=== PATIENT | female | born 1945 | race Caucasian/White ===

== ENCOUNTER 2020-03-02 10:44 | Outpatient (REF) | payer BC, SELFPAY ==
--- NOTE | 2020-03-02 10:50 | XR_ITS ---
EXAMINATION: XR KNEE, LEFT CLINICAL INFORMATION: Left knee pain. COMPARISON: 03/22/2016 TECHNIQUE: AP, lateral, and both oblique views of the left knee. FINDINGS: Mild patellofemoral compartment osteoarthritis is again noted, similar to prior. Medial lateral compartments. Also the well-preserved. No fracture or malalignment. No joint effusion. Soft tissues are unremarkable. IMPRESSION: Mild patellofemoral compartment degenerative arthritis. No acute osseous abnormalities.
== END 2020-03-02 10:45 | disposition home or self-care (01) ==
LOC: HO.HMGCX 10:44
PROVIDERS: PCP Internal Medicine; Visit Provider Hospitalist
DX: M25.562 Pain in left knee (principal)
CPT/HCPCS: 73564

== ENCOUNTER 2020-03-21 10:33 | Outpatient (REF) | payer BC, SELFPAY | END 2020-03-21 10:34 | disposition home or self-care (01) | LOC: HO.LAB 10:33 | PROVIDERS: Visit Provider Nurse Practitioner Family | DX: N39.0 Urinary tract infection, site not specified (principal); R31.9 Hematuria, unspecified | CPT/HCPCS: 87086 ==

== ENCOUNTER 2020-05-29 15:16 | Outpatient (REF) | payer BC, SELFPAY | END 2020-05-29 15:17 | disposition home or self-care (01) | LOC: HO.LNP 15:16 | PROVIDERS: Visit Provider Internal Medicine | DX: Z20.828 Contact with and (suspected) exposure to other viral communicable diseases (principal) | CPT/HCPCS: U0003 ==

== ENCOUNTER 2020-06-29 11:46 | Outpatient (REF) | payer BC, SELFPAY ==
--- NOTE | ~2020-06-29 | XR_ITS ---
EXAMINATION: XR KNEE, BILATERAL XR KNEE, LEFT CLINICAL INFORMATION: Pain COMPARISON: 03/02/2020 TECHNIQUE: AP standing view of both knees. Lateral and sunrise views of the left knee. FINDINGS: Left knee: No fracture or subluxation. Compartmental joint spaces are maintained. Small marginal osteophytes of the patellofemoral compartment. No joint effusion. The soft tissues are unremarkable. Right knee: No fracture or subluxation on this frontal view with medial and lateral compartments maintained. XR/XR knee LT 2V IMPRESSION: Mild degenerative changes of the patellofemoral compartment of the left knee, unchanged from prior.
--- NOTE | ~2020-06-29 | XR_ITS ---
EXAMINATION: XR KNEE, BILATERAL XR KNEE, LEFT CLINICAL INFORMATION: Pain COMPARISON: 03/02/2020 TECHNIQUE: AP standing view of both knees. Lateral and sunrise views of the left knee. FINDINGS: Left knee: No fracture or subluxation. Compartmental joint spaces are maintained. Small marginal osteophytes of the patellofemoral compartment. No joint effusion. The soft tissues are unremarkable. Right knee: No fracture or subluxation on this frontal view with medial and lateral compartments maintained. XR/XR knee standing BI IMPRESSION: Mild degenerative changes of the patellofemoral compartment of the left knee, unchanged from prior.
== END 2020-06-29 11:47 | disposition home or self-care (01) ==
LOC: HO.HOSX 11:46
PROVIDERS: Visit Provider Orthopaedic Surgery
DX: M17.12 Unilateral primary osteoarthritis, left knee (principal)
CPT/HCPCS: 20610; 73560; 73565; J1100

== ENCOUNTER 2020-07-20 10:09 | Outpatient (REF) | payer BC, SELFPAY ==
[2020-07-20 12:04] LABS: Free T4 (Free Thyroxine) 1.15 ng/dL (0.71-1.85); Thyroid Stimulating Hormone 1.86 uIU/mL (0.32-4.0)
[2020-07-20 12:20] LABS: Alanine Aminotransferase 35 U/L (0-31); Albumin Level 4.4 g/dL (3.5-5.0); Alkaline Phosphatase 77 U/L (39-117); Anion Gap 11 (12-20); Aspartate Amino Transferase 23 U/L (5-31); Bilirubin Total 0.4 mg/dL (0.0-1.0); Blood Urea Nitrogen 14 mg/dL (9-16); Calcium 9.2 mg/dL (8.4-10.2); Carbon Dioxide 27 mmol/L (22-29); Chloride 106 mmol/L (96-108); Cholesterol 200 mg/dL; Estimated Glomerular Filt Rate > 60; Glucose Fasting 103 mg/dL (60-99); HDL Cholesterol 59 mg/dL; LDL Cholesterol Calculated 110 mg/dl; Potassium 4.2 mmol/L (3.3-5.1); Sodium 140 mmol/L (135-145); Total Protein 6.8 g/dL (6.5-8.0); Triglycerides 155 mg/dL
[2020-07-20 16:18] LABS: Glucose Urine UA NEG (NEG); Leukocyte Esterase Urine 3+ (NEG); Nitrite Urine NEG (NEG); Specific Gravity - Urine 1.015 (1.005-1.025); UACC Culture Trigger YES; Urine Blood TRACE (NEG); Urine Ketones NEG (NEG); Urine Protein NEG (NEG-TRACE)
[2020-07-20 16:23] LABS: Appearance Urine CLEAR; Color Urine YELLOW
[2020-07-20 17:00] LABS: Bacteria Urine 4+ /LPF; Renal Epithelial Cells Urine 1+ /LPF; Squamous Epithelial Cell Urine 2+ /LPF; WBC Urine 30-49 /HPF (0-4)
== END 2020-07-20 10:10 | disposition home or self-care (01) ==
LOC: HO.HMGCLDS 10:09
PROVIDERS: PCP Internal Medicine; Visit Provider Internal Medicine
DX: Z12.12 Encounter for screening for malignant neoplasm of rectum (principal); Z12.11 Encounter for screening for malignant neoplasm of colon; E03.9 Hypothyroidism, unspecified; M54.2 Cervicalgia; M85.80 Other specified disorders of bone density and structure, unspecified site
CPT/HCPCS: 36415; 80053; 80061; 81001; 81003; 84439; 84443; 87086; 87088; 87186

== ENCOUNTER 2020-11-29 09:05 | Outpatient (REF) | payer BC, SELFPAY ==
--- NOTE | ~2020-11-29 | MM_ITS ---
EXAMINATION: MM SCREENING DIGITAL BREAST TOMOSYNTHESIS, BILATERAL CLINICAL INFORMATION: Screening. Asymptomatic. The lifetime risk of breast cancer based on the Tyrer-Cuzick Model is 2%. COMPARISON: Mammography: 11/23/2019, 11/17/2018, 10/27/2017 TECHNIQUE: Digital breast tomosynthesis is performed in both the craniocaudal and mediolateral oblique views along with computer-aided detection (CAD). Synthesized 2D images are generated from the tomosynthesis. FINDINGS: There are scattered areas of fibroglandular density (ACR BI-RADS breast composition Category b). There are no significant masses, abnormal calcifications, or other abnormalities. Small nodularity anterior outer left breast is stable from prior studies. No developing density. The axilla and skin contours are unremarkable. MM/MM tomosynthesis screening BI IMPRESSION: There are no significant changes from prior study. ASSESSMENT: BI-RADS 2: Benign RECOMMENDATION: Routine annual mammography screening. This patient's information was entered into a reminder system with a target due date for their next mammogram.
== END 2020-11-29 09:06 | disposition home or self-care (01) ==
LOC: HO.MAMMO 09:05
PROVIDERS: PCP Internal Medicine; Visit Provider Internal Medicine
DX: Z12.31 Encounter for screening mammogram for malignant neoplasm of breast (principal)
CPT/HCPCS: 77063; 77067

== ENCOUNTER 2021-01-04 09:00 | Outpatient (RCR) | payer BC, SELFPAY ==
--- NOTE | 2020-12-12 11:43 | MHC.PT.EP ---
[facility] [place] Office [place] Office [place] Office [address] David Henry [address] [phone] F: [phone] F: [phone] F: [phone] F: [phone] Physical Therapy Plan of Care Date of Evaluation: Date of Surgery: Diagnosis: LOW BACK PAIN Assessment: 75 YO FEMALE REF TO PT W Rt SI Jt/ LS PAIN SINCE APPROX 11/10/20. HER LBP APPEARS TO BE POSTURAL IN ORIGIN W RIGHT SI Jt IRRIT AND SOFT TISSUE STRAIN. OBJECTIVE FINDINGS INCLUDE LIMITED TRUNK AROM, HS/ HIP FLEXIB, GENERALIZED TRUNK AND PROX LEs WEAKNESS, AND PAIN IN Rt SI jT/ GLUTE COMPLEX- Pt DENIES BOWEL / BLADDER SIGNS AND SXS AND DENIES RADIC SXS. FUNCTIONALLY, Pt IS LIMITED WITH LIFTING, CARRYING, SITTING, OR MORE CHALLENGING ADLs. Pt IS A GOOD CANDIDATE FOR SKILLED PT TO DEV A HEP, IMPROVE POSTURE/ BODY MECH, AND DEV SELF-SX MGMT TECHN. Frequency and Duration: The patient will be seen 2x WK x 4 WKS Short Term Goals: Pt'S Rt LBP DECR TO 2-3/10 IN 2WKS Pt DEMON INDEP SELF CORRECT POSTURE AND PERF 3:3 SIMUL ADLS W PROPER TECHN IN 2 WKS [place] Goals: Pt INDEP W HEP AND DEMON WFL FUNCT SQUAT, WFL HIP / HS IN 4 WKS Treatment Plan: Modalities to reduce pain, spasms and effusion. Manual therapy to restore motion and function. Therapeutic exercise to improve strength and flexibility. Neuromuscular re-education for posture and balance. Therapeutic activities to return to functional activities of daily living. Electronically signed by: Savi Del Cid,PT Please sign and return to therapist. Thank you for your referral.
--- NOTE | 2021-05-01 13:11 | MHC.PT.DC ---
[facility] [place] Office [place] Office [place] Office [address] David Henry 140 [facility] [phone] F: [phone] F: [phone] F: [phone] F: [phone] Physical Therapy Discharge Report Diagnosis: LOW BACK PAIN Date of Surgery: Date of Evaluation: 12/12/20 Date of Discharge: 01/04/21 Treatments to Date: 7 Cancellations to Date: 0 No Shows to Date: 0 Discharge Status: Independent with HEP Discharge Summary: 01/04/21: pt has progressed very well over the course of PT with no pain and no functional limitations at this time. She has demonstrated good compliance with HEP. She has no pain with ADLs and has good understanding of posture and body mechanics. Electronically signed by: Rolando Miller, PT Please sign and return to therapist. Thank you for your referral.
== END 2021-05-01 13:11 | disposition home or self-care (01) ==
LOC: HO.PTCHIC 09:00
PROVIDERS: PCP Internal Medicine; Visit Provider Internal Medicine
DX: M54.5 Low back pain (principal)
CPT/HCPCS: 97110; 97161; 97530

== ENCOUNTER 2021-07-11 08:30 | Outpatient (REF) | payer BC, SELFPAY ==
[2021-07-11 11:45] LABS: Hematocrit 46.4 % (37.0-47.0); Hemoglobin 15.1 g/dl (12.0-16.0); Mean Corpuscular HGB Conc 32.5 g/dl (31.0-35.0); Mean Corpuscular Hemoglobin 29.5 pg (27.0-33.0); Mean Corpuscular Volume 90.6 fL (80.0-98.0); Mean Platelet Volume 11.1 fL (9.4-12.3); Platelet Count 245 X10*3/uL (160-400); Red Blood Count 5.12 X10*6/uL (4.20-5.50); Red Cell Distribution Width 13.7 % (11.0-16.0); White Blood Count 7.8 X10*3/uL (4.8-10.8)
[2021-07-11 12:06] LABS: Alanine Aminotransferase 34 U/L (0-31); Albumin Level 4.3 g/dL (3.5-5.0); Alkaline Phosphatase 80 U/L (39-117); Anion Gap 11 (12-20); Aspartate Amino Transferase 26 U/L (5-31); Bilirubin Total 0.3 mg/dL (0.0-1.0); Blood Urea Nitrogen 15 mg/dL (9-16); Calcium 9.4 mg/dL (8.4-10.2); Carbon Dioxide 28 mmol/L (22-29); Chloride 105 mmol/L (96-108); Cholesterol 199 mg/dL; Estimated Glomerular Filt Rate > 60; Glucose Fasting 103 mg/dL (60-99); HDL Cholesterol 57 mg/dL; LDL Cholesterol Calculated 114 mg/dl; Potassium 4.3 mmol/L (3.3-5.1); Sodium 140 mmol/L (135-145); Total Protein 6.9 g/dL (6.5-8.0); Triglycerides 142 mg/dL
[2021-07-11 12:15] LABS: TSH reflex Free T4 1.75 uIU/mL (0.32-4.0)
== END 2021-07-11 08:31 | disposition home or self-care (01) ==
LOC: HO.HMGCLDS 08:30
PROVIDERS: PCP Internal Medicine; Visit Provider Internal Medicine
DX: Z00.00 Encounter for general adult medical examination without abnormal findings (principal); E03.9 Hypothyroidism, unspecified; E30.0 Delayed puberty
CPT/HCPCS: 36415; 80053; 80061; 84443; 85027

== ENCOUNTER → 2021-08-02 12:16 | Outpatient (BNVA) | payer BC, SELFPAY | PROVIDERS: PCP Internal Medicine; Visit Provider Orthopaedic Surgery | DX: M17.12 Unilateral primary osteoarthritis, left knee (principal) | CPT/HCPCS: 20610; J1100 ==

== ENCOUNTER 2021-12-03 08:22 | Outpatient (REF) | payer BC, SELFPAY ==
--- NOTE | ~2021-12-03 | MM_ITS ---
EXAMINATION: MM SCREENING DIGITAL BREAST TOMOSYNTHESIS, BILATERAL CLINICAL INFORMATION: Screening. Asymptomatic. The lifetime risk of breast cancer based on the Tyrer-Cuzick Model is 3%. COMPARISON: Mammography: 11/29/2020, 11/23/2019, 11/17/2018, 10/27/2017, 09/26/2016, 08/21/2015, 08/11/2015; targeted left breast ultrasound 08/21/2015. TECHNIQUE: Digital breast tomosynthesis is performed in both the craniocaudal and mediolateral oblique views along with computer-aided detection (CAD). Synthesized 2D images are generated from the tomosynthesis. Additional right MLO view is provided. FINDINGS: There are scattered areas of fibroglandular density (ACR BI-RADS breast composition Category b). There are no significant masses, abnormal calcifications, or other abnormalities. There is a subcentimeter cyst anterior 3:00 left breast slightly increased in size from prior studies, currently approximately 0.6 cm. The axilla and skin contours are unremarkable. MM/MM tomosynthesis screening BI IMPRESSION: No mammographic evidence of malignancy. ASSESSMENT: BI-RADS 2: Benign RECOMMENDATION: Routine annual mammography screening. This patient's information was entered into a reminder system with a target due date for their next mammogram.
== END 2021-12-03 08:23 | disposition home or self-care (01) ==
LOC: HO.MAMMO 08:22
PROVIDERS: Visit Provider Internal Medicine
DX: Z12.31 Encounter for screening mammogram for malignant neoplasm of breast (principal)
CPT/HCPCS: 77063; 77067

== ENCOUNTER → 2022-01-10 14:39 | Outpatient (BNVA) | payer BC, SELFPAY | PROVIDERS: PCP Internal Medicine; Visit Provider Orthopaedic Surgery | DX: M17.12 Unilateral primary osteoarthritis, left knee (principal) | CPT/HCPCS: 20610; J1100 ==

== ENCOUNTER 2022-07-25 08:37 | Outpatient (REF) | payer BC, SELFPAY ==
[2022-07-25 11:40] LABS: Hematocrit 47.1 % (37.0-47.0); Hemoglobin 15.5 g/dl (12.0-16.0); Mean Corpuscular HGB Conc 32.9 g/dl (31.0-35.0); Mean Corpuscular Hemoglobin 30.1 pg (27.0-33.0); Mean Corpuscular Volume 91.5 fL (80.0-98.0); Mean Platelet Volume 11.5 fL (9.4-12.3); Platelet Count 271 X10*3/uL (160-400); Red Blood Count 5.15 X10*6/uL (4.20-5.50); Red Cell Distribution Width 13.7 % (11.0-16.0); White Blood Count 8.1 X10*3/uL (4.8-10.8)
[2022-07-25 12:08] LABS: Alanine Aminotransferase 58 U/L (0-31); Albumin Level 4.2 g/dL (3.5-5.0); Alkaline Phosphatase 85 U/L (39-117); Anion Gap 14 (12-20); Aspartate Amino Transferase 39 U/L (5-31); Bilirubin Total 0.4 mg/dL (0.0-1.0); Blood Urea Nitrogen 10 mg/dL (9-16); Carbon Dioxide 26 mmol/L (22-29); Chloride 106 mmol/L (96-108); Cholesterol 198 mg/dL; Estimated Glomerular Filt Rate > 60; Glucose Fasting 113 mg/dL (60-99); HDL Cholesterol 51 mg/dL; LDL Cholesterol Calculated 108 mg/dl; Potassium 4.5 mmol/L (3.3-5.1); Sodium 141 mmol/L (135-145); Total Protein 6.6 g/dL (6.5-8.0); Triglycerides 195 mg/dL
[2022-07-25 12:30] LABS: TSH reflex Free T4 2.59 uIU/mL (0.32-4.0); Vitamin D 25-OH Total 37.7 ng/mL (>30)
== END 2022-07-25 08:38 | disposition home or self-care (01) ==
LOC: HO.HMGCLDS 08:37
PROVIDERS: PCP Internal Medicine; Visit Provider Internal Medicine
DX: Z00.00 Encounter for general adult medical examination without abnormal findings (principal); E03.9 Hypothyroidism, unspecified
CPT/HCPCS: 36415; 80053; 80061; 82306; 84443; 85027

== ENCOUNTER 2022-10-10 10:10 | Outpatient (REF) | payer BC, SELFPAY ==
[2022-10-10 11:46] LABS: Estimated Average Glucose 120 mg/dL; Hemoglobin A1c % 5.8 %
[2022-10-10 12:02] LABS: Alanine Aminotransferase 47 U/L (0-31); Albumin Level 4.1 g/dL (3.5-5.0); Alkaline Phosphatase 71 U/L (39-117); Anion Gap 10 (12-20); Aspartate Amino Transferase 37 U/L (5-31); Bilirubin Total 0.4 mg/dL (0.0-1.0); Blood Urea Nitrogen 19 mg/dL (9-16); Calcium 9.3 mg/dL (8.4-10.2); Carbon Dioxide 28 mmol/L (22-29); Chloride 108 mmol/L (96-108); Estimated Glomerular Filt Rate > 60; Glucose Fasting 104 mg/dL (60-99); Potassium 4.4 mmol/L (3.3-5.1); Sodium 142 mmol/L (135-145); Total Protein 6.4 g/dL (6.5-8.0)
== END 2022-10-10 10:11 | disposition home or self-care (01) ==
LOC: HO.HMGCLDS 10:10
PROVIDERS: PCP Internal Medicine; Visit Provider Internal Medicine
DX: Z00.00 Encounter for general adult medical examination without abnormal findings (principal); R73.9 Hyperglycemia, unspecified
CPT/HCPCS: 36415; 80053; 83036

== ENCOUNTER 2022-10-28 08:32 | Outpatient (REF) | payer BC, SELFPAY ==
--- NOTE | ~2022-10-28 | XR_ITS ---
EXAMINATION: XR KNEE, LEFT XR KNEE AP STANDING CLINICAL INFORMATION: Knee pain. COMPARISON: June 29, 2020 and March 02, 2020. TECHNIQUE: Four views of the left knee. AP bilateral standing view of the knees was obtained. FINDINGS: Question mild degenerative change of the left patellofemoral compartment, similar compared with June 2020 and February 2020. Bones and soft tissues otherwise appear unremarkable. No fracture or joint effusion appreciated. Alignment is anatomic. Joint spaces otherwise appear maintained. No abnormal soft tissue calcification. XR/XR knee standing BI IMPRESSION: Question mild degenerative change of the patellofemoral compartment, similar compared with priors.
--- NOTE | ~2022-10-28 | XR_ITS ---
EXAMINATION: XR KNEE, LEFT XR KNEE AP STANDING CLINICAL INFORMATION: Knee pain. COMPARISON: June 29, 2020 and March 02, 2020. TECHNIQUE: Four views of the left knee. AP bilateral standing view of the knees was obtained. FINDINGS: Question mild degenerative change of the left patellofemoral compartment, similar compared with June 2020 and February 2020. Bones and soft tissues otherwise appear unremarkable. No fracture or joint effusion appreciated. Alignment is anatomic. Joint spaces otherwise appear maintained. No abnormal soft tissue calcification. XR/XR knee LT 2V IMPRESSION: Question mild degenerative change of the patellofemoral compartment, similar compared with priors.
== END 2022-10-28 08:33 | disposition home or self-care (01) ==
LOC: HO.HOSX 08:32
PROVIDERS: Visit Provider Orthopaedic Surgery
DX: M17.12 Unilateral primary osteoarthritis, left knee (principal); M65.342 Trigger finger, left ring finger
CPT/HCPCS: 20610; 73560; 73565; J1100

== ENCOUNTER 2022-10-29 08:09 | Outpatient (REF) | payer BC, SELFPAY ==
--- NOTE | ~2022-10-29 | US_ITS ---
EXAMINATION: US ABDOMEN LIMITED CLINICAL INFORMATION: Abnormal LFTs. COMPARISON: CT abdomen and pelvis 09/20/2015. TECHNIQUE: Real-time imaging of the right upper quadrant abdominal viscera. FINDINGS: PANCREAS: Normal. LIVER: The liver is normal in size. The liver contour is normal. The liver echotexture is increased. No focal hepatic lesion. There is no intrahepatic biliary duct dilatation seen. GALLBLADDER: The gallbladder is contracted. No gallstones are seen. The gallbladder wall does not appear thickened. There is no pericholecystic fluid. COMMON BILE DUCT: Normal in caliber measuring 0.53 cm in diameter. RIGHT KIDNEY: Mild right hydronephrosis. No renal calculi or focal parenchymal lesions. The kidney measures 10.3 cm in maximum dimension. FREE FLUID: None. US/US abdomen limited IMPRESSION: Echogenic liver probably representing fatty infiltration. Contracted gallbladder. Mild right hydronephrosis.
== END 2022-10-29 08:10 | disposition home or self-care (01) ==
LOC: HO.HMGCX 08:09
PROVIDERS: PCP Internal Medicine; Visit Provider Internal Medicine
DX: R79.89 Other specified abnormal findings of blood chemistry (principal)
CPT/HCPCS: 76705

== ENCOUNTER → 2022-11-29 09:20 | Outpatient (BNVA) | payer BC, SELFPAY | PROVIDERS: PCP Internal Medicine; Visit Provider Orthopaedic Surgery ==

== ENCOUNTER 2022-12-23 07:31 | Day surgery (SDC) | payer BC, SELFPAY ==
[2022-12-23 07:59] VITALS: BP 194/70; PULSE 82; RESP 16; TEMP 36.1; O2SAT 97; BMI 32.3
[2022-12-23 09:09] VITALS: BP 166/65; PULSE 75; RESP 20; TEMP 36.1; O2SAT 97
--- NOTE | 2022-12-23 09:17 | MHC.SHP ---
Pre-Procedural Eval Section A Date of Service: 12/23/22 The patient is an INPATIENT: No Changes since office visit: No Cold of Flu in the past 2 weeks, No New Medical Problems, No Changes in Medication and No Patient answered all questions The History & Physical has been completed within 30 days and I have reviewed it.: Yes Section B Chief Complaint: Trigger finger, right ring finger Allergies: Allergies Allergy/AdvReac Type Severity Reaction Status Date / Time meperidine [Meperidine] Allergy Intermediate Severe Verified 11/29/22 09:37 Nausea and Vomiting tramadol [Tramadol] Allergy Mild Nausea and Verified 11/29/22 09:37 Vomiting, GI Upset erythromycin base Allergy Unknown Gastrointestinal Verified 11/29/22 09:37 Upset hydromorphone Allergy Unknown Hallucinati Verified 11/29/22 09:37 ons moxifloxacin [From Avelox] Allergy Unknown Diarrhea, Verified 11/29/22 09:37 Nausea and Vomiting, GI Upset amoxicillin [From Augmentin] AdvReac Unknown Gastrointestinal Verified 11/29/22 09:37 Upset celecoxib [From Celebrex] AdvReac Unknown Gastrointestinal Verified 11/29/22 09:37 Upset, nausea and vomiting clavulanic acid AdvReac Unknown Gastrointestinal Verified 11/29/22 09:37 [From Augmentin] Upset tizanidine [From Zanaflex] AdvReac Unknown Gastrointestinal Verified 11/29/22 09:37 Upset, Vomiting, Nausea and Vomiting valdecoxib [From Bextra] AdvReac Unknown Gastrointestinal Verified 11/29/22 09:37 Upset, Nausea and vomiting Plan I have reviewed the history and physical and performed a pertinent physical examination on my patient. No changes have occurred unless specified. Time Spent With Patient Time: Total time managing care of this patient today ____ minutes.
--- NOTE | 2022-12-23 09:18 | W.PM.OPN ---
Operative Note Operative Note Date of Service: 12/23/22 Narrative: Operative Note Preop diagnosis: 1. right ring finger Trigger finger Postop diagnosis: 1. right ring finger Trigger finger Procedure: 1. right ring finger A1 radha release Surgeon: Nat Mcbride MD Anesthesia: local block using 1% lidocaine with epinephrine Findings: No locking or catching after A1 radha release EBL: Less than 5 mL Tourniquet time: None Specimens: None Complications: None Disposition: Brought to recovery room in stable condition Plan: Follow-up for 10-14 days for wound check and suture removal Indications: The patient is 77 years old, with a right ring finger trigger finger that has been unresponsive to nonoperative management. The risks and benefits of operative treatment including but not limited to risk of damage to blood vessels, nerves, tendons, infection, persistent pain, persistent symptoms, recurrence or possible need for additional surgery were discussed with the patient and the patient wishes to proceed with surgery. Procedure: Once consent was obtained a local block was performed in the preop area using a combination of 1% lidocaine with epinephrine. The patient was then brought back to the operating suite and placed on the operative table in supine position. The right upper extremity was prepped and draped in a standard surgical fashion. Once assured that we had a good block, a 1.5 cm oblique incision was made centered over the A1 radha of the right ring finger . The incision was made through the skin to the subcutaneous tissues using a #15 blade. Careful dissection was made down to the level of the A1 radha using tenotomy scissors, with care being taken to protect the nearby neurovascular structures. A longitudinal incision was made in the A1 radha 1st using a #15 blade, then using tenotomy scissors under direct visualization. The A1 radha was noted to be thickened. Following our A1 radha release, we no longer saw any locking or catching of the digit with flexion and extension. Once satisfied with our A1 radha release the wound was copiously irrigated with normal saline and hemostasis was obtained with a brief period of local pressure. The skin edges were reapproximated with some 5.0 nylon suture material and a sterile dressing was applied. The patient appears to have tolerated the procedure well and with no complications. All digits were well vascularized at the conclusion of the case.
== END 2022-12-23 09:25 | disposition home or self-care (01) ==
PROVIDERS: PCP Internal Medicine; Visit Provider Orthopaedic Surgery
PROC: (CPT 26055; principal; 2022-12-23 08:50)
DX: M65.341 Trigger finger, right ring finger (principal); M19.90 Unspecified osteoarthritis, unspecified site; M85.80 Other specified disorders of bone density and structure, unspecified site; Z88.1 Allergy status to other antibiotic agents; Z88.8 Allergy status to other drugs, medicaments and biological substances
CPT/HCPCS: 26055; J0171

== ENCOUNTER → 2022-12-23 07:31 | Outpatient (BNV) | payer BC, SELFPAY | PROVIDERS: PCP Internal Medicine; Visit Provider Orthopaedic Surgery | DX: M65.341 Trigger finger, right ring finger (principal) | CPT/HCPCS: 26055 ==

== ENCOUNTER 2023-01-07 12:22 | Outpatient (AMB) | payer BC, SELFPAY ==
--- NOTE | 2023-01-07 12:28 | MHC.OFFVIS ---
Intake Vital Signs 01/07/23 12:29 Height 5 ft 4 in Weight 188 lb BMI 32.3 Handedness Right Intake Visit Reasons: PO RT RF Trigger release 12/23/22AR Intake Note: Erin is a 77 year old right hand dominant female who presents today for a post operative appointment for his right RF Trigger release 12/23/22 AR. Patient reports her pain and discomfort is better than before. Allergies meperidine [Meperidine] Allergy (Intermediate, Verified 01/07/23 12:33) Severe Nausea and Vomiting tramadol [Tramadol] Allergy (Mild, Verified 01/07/23 12:33) Nausea and Vomiting, GI Upset erythromycin base Allergy (Unknown, Verified 01/07/23 12:33) Gastrointestinal Upset hydromorphone Allergy (Unknown, Verified 01/07/23 12:33) Hallucinations moxifloxacin [From Avelox] Allergy (Unknown, Verified 01/07/23 12:33) Diarrhea, Nausea and Vomiting, GI Upset amoxicillin [From Augmentin] Adverse Reaction (Unknown, Verified 01/07/23 12:33) Gastrointestinal Upset celecoxib [From Celebrex] Adverse Reaction (Unknown, Verified 01/07/23 12:33) Gastrointestinal Upset, nausea and vomiting clavulanic acid [From Augmentin] Adverse Reaction (Unknown, Verified 01/07/23 12:33) Gastrointestinal Upset tizanidine [From Zanaflex] Adverse Reaction (Unknown, Verified 01/07/23 12:33) Gastrointestinal Upset, Vomiting, Nausea and Vomiting valdecoxib [From Bextra] Adverse Reaction (Unknown, Verified 01/07/23 12:33) Gastrointestinal Upset, Nausea and vomiting HPI PO RT RF Trigger release 12/23/22AR HPI Details 77-year-old right hand dominant female who presents in the office today 2 weeks status post right ring finger A1 radha release, which was performed on 12/23/[address] Mcbride. The patient reports her pain and discomfort has improved from before the surgery. [facility] Medical History Annual physical exam Bilateral renal cysts Dysuria Endometrial cancer GERD (gastroesophageal reflux disease) Glaucoma History of uterine cancer Hypothyroidism Lower back pain Osteoarthritis Osteopenia Surgical History H/O colonoscopy History of hysterectomy History of tonsillectomy Hx of appendectomy Social History Housing: House Alcohol intake: never Patient Tobacco Use Status: Never used Tobacco e-Cigarette/Vaping Use: Never Used Second Hand Smoke Exposure: No service: No Current occupational status: retired Current occupation: right handed Cognitive needs: No Hearing needs: No Vision needs: No Review of Systems Const All systems reviewed & are unremarkable except as noted in HPI and below Physical Exam Vital Signs: BMI result Body Mass Index 32.3 Const General: cooperative, healthy appearing and no acute distress Resp Effort & Inspection: normal respiratory effort and able to speak in complete sentences Cardio Rate: regular rate Peripheral pulses: Peripheral pulses 2+ throughout GI Palpation (GI): Soft to palpation Skin Lesions: no lesions Rashes: no rashes Extrem Other: Right ring finger: Incision site is clean, dry, and intact. Sutures intact. Lacking about 1 cm from making a closed fist. No active locking. Sensation intact. NVI. Assessment & Plan Assessment & Plan (1) Trigger ring finger of left hand: Code(s): M65.342 - Trigger finger, left ring finger Plan Ms. Pelaez is a 77-year-old right hand dominant female who presents in the office today 2 weeks status post right ring finger A1 radha release, which was performed on 12/23/[address] Mcbride. The patient reports her pain and discomfort has improved from before the surgery. I demonstrated gentle ROM exercises in the office today. Sutures were removed and steri-stripes were applied. We will consider her proceeding with occupational therapy should she continue to lack in her ROM. She will follow up in 1 week for a wound and ROM check, or sooner if needed. Patient Instructions: Scribed for Rosina Rachel PA-C by Kendra Cordova nuclear medical technologist, on 01/07/2023 at 12:23 pm, EST. Coding Level of Care Code Global (98167) Diagnoses Trigger ring finger of left hand M65.342
[2023-01-07 12:29] VITALS: BMI 32.3
== END 2023-01-07 13:45 | disposition home or self-care (01) ==
PROVIDERS: PCP Internal Medicine; Visit Provider Physician Assistant
DX: M65.342 Trigger finger, left ring finger (principal)
CPT/HCPCS: 99024

== ENCOUNTER → 2023-01-07 12:22 | Outpatient (BNVA) | payer BC, SELFPAY | PROVIDERS: PCP Internal Medicine; Visit Provider Physician Assistant ==

== ENCOUNTER 2023-01-16 08:39 | Outpatient (AMB) | payer BC, SELFPAY ==
[2023-01-16 08:42] VITALS: BMI 32.3
--- NOTE | 2023-01-16 08:42 | MHC.OFFVIS ---
Intake Vital Signs 01/16/23 08:42 Height 5 ft 4 in Weight 188 lb BMI 32.3 Intake Visit Reasons: PO RT RF Trigger release 12/23/22AR Intake Note: Erin is a 77 year old right hand dominant female who presents today for a wound check for her right RF Trigger release 12/23/22 AR. Patient reports her symptoms have improved since her surgery. She notices that her incision site is a little sore. Allergies meperidine [Meperidine] Allergy (Intermediate, Verified 01/16/23 08:42) Severe Nausea and Vomiting tramadol [Tramadol] Allergy (Mild, Verified 01/16/23 08:42) Nausea and Vomiting, GI Upset erythromycin base Allergy (Unknown, Verified 01/16/23 08:42) Gastrointestinal Upset hydromorphone Allergy (Unknown, Verified 01/16/23 08:42) Hallucinations moxifloxacin [From Avelox] Allergy (Unknown, Verified 01/16/23 08:42) Diarrhea, Nausea and Vomiting, GI Upset amoxicillin [From Augmentin] Adverse Reaction (Unknown, Verified 01/16/23 08:42) Gastrointestinal Upset celecoxib [From Celebrex] Adverse Reaction (Unknown, Verified 01/16/23 08:42) Gastrointestinal Upset, nausea and vomiting clavulanic acid [From Augmentin] Adverse Reaction (Unknown, Verified 01/16/23 08:42) Gastrointestinal Upset tizanidine [From Zanaflex] Adverse Reaction (Unknown, Verified 01/16/23 08:42) Gastrointestinal Upset, Vomiting, Nausea and Vomiting valdecoxib [From Bextra] Adverse Reaction (Unknown, Verified 01/16/23 08:42) Gastrointestinal Upset, Nausea and vomiting HPI PO RT RF Trigger release 12/23/22AR HPI Details 77-year-old right hand dominant female who presents in the office today for a ROM check; 1 month status post right ring finger A1 radha release, which was performed on 12/23/[address] Mcbride. The patient reports her symptoms have improved since her surgery. She states she has noticed a mild soreness around the incision site. [facility] Medical History Annual physical exam Bilateral renal cysts Dysuria Endometrial cancer GERD (gastroesophageal reflux disease) Glaucoma History of uterine cancer Hypothyroidism Lower back pain Osteoarthritis Osteopenia Surgical History H/O colonoscopy History of hysterectomy History of tonsillectomy Hx of appendectomy Social History Housing: House Alcohol intake: never Patient Tobacco Use Status: Never used Tobacco e-Cigarette/Vaping Use: Never Used Second Hand Smoke Exposure: No service: No Current occupational status: retired Current occupation: right handed Cognitive needs: No Hearing needs: No Vision needs: No Review of Systems Const All systems reviewed & are unremarkable except as noted in HPI and below Physical Exam Vital Signs: BMI result Body Mass Index 32.3 Const General: cooperative, healthy appearing and no acute distress Resp Effort & Inspection: normal respiratory effort and able to speak in complete sentences Cardio Rate: regular rate Peripheral pulses: Peripheral pulses 2+ throughout GI Palpation (GI): Soft to palpation Skin Lesions: no lesions Rashes: no rashes Extrem Other: Right ring finger: Incision site is clean, dry, and intact. No surrounding erythema or drainage. No signs of infection. Able to make a full fist. No active signs of locking. Sensation intact. Capillary refill is brisk. Assessment & Plan Assessment & Plan (1) Trigger ring finger of left hand: Comment: Right ring A1 radha release 12/23/2022 AR Code(s): M65.342 - Trigger finger, left ring finger Plan Ms. Pelaez is a 77-year-old right hand dominant female who presents in the office today for a ROM check; 1 month status post right ring finger A1 radha release, which was performed on 12/23/[address] Mcbride. The patient reports her symptoms have improved since her surgery. She states she has noticed a mild soreness around the incision site. The patient may return to normal activities as tolerated. Follow up will be PRN, or sooner if needed. Patient Instructions: Scribed for Rosina Rachel PA-C by Kendra Cordova medical administrative specialist, on 01/16/2023 at 8:44 am, EST. Coding Level of Care Code Global (00325) Diagnoses Trigger ring finger of left hand M65.342
== END 2023-01-16 09:29 | disposition home or self-care (01) ==
PROVIDERS: PCP Internal Medicine; Visit Provider Physician Assistant
DX: M65.342 Trigger finger, left ring finger (principal)
CPT/HCPCS: 99024

== ENCOUNTER → 2023-01-16 08:39 | Outpatient (BNVA) | payer BC, SELFPAY | PROVIDERS: PCP Internal Medicine; Visit Provider Physician Assistant ==

== ENCOUNTER 2023-08-06 09:06 | Outpatient (REF) | payer BC, SELFPAY ==
[2023-08-06 11:33] LABS: MANUAL DIFF FLAG NO
[2023-08-06 11:39] LABS: Basophils Percent Auto 0.5 % (0-2); Eosinophils Absolute Auto 0.1 X10*3/uL (0.0-0.4); Eosinophils Percent Auto 1.2 % (0-4); Hematocrit 44.7 % (37.0-47.0); Hemoglobin 14.8 g/dl (12.0-16.0); Imm Gran Abs Auto 0.03 X10*3/uL (0.00-0.03); Imm Gran Pct Auto 0.4 % (0.0-0.4); Lymphocytes Absolute Auto 2.2 X10*3/uL (1.2-4.9); Lymphocytes Percent Auto 29.5 % (20-40); Mean Corpuscular HGB Conc 33.1 g/dl (31.0-35.0); Mean Corpuscular Hemoglobin 30.1 pg (27.0-33.0); Mean Platelet Volume 11.9 fL (9.4-12.3); Monocytes Absolute Auto 0.6 X10*3/uL (0.1-1.2); Neutrophils Absolute Auto 4.4 x10*3/uL (2.0-8.3); Neutrophils Percent Auto 60.4 % (45-73); Platelet Count 241 X10*3/uL (160-400); Red Blood Count 4.91 X10*6/uL (4.20-5.50); Red Cell Distribution Width 13.8 % (11.0-16.0); White Blood Count 7.3 X10*3/uL (4.8-10.8)
[2023-08-06 12:05] LABS: Alanine Aminotransferase 37 U/L (0-31); Albumin Level 4.2 g/dL (3.5-5.0); Alkaline Phosphatase 74 U/L (39-117); Anion Gap 10 (12-20); Aspartate Amino Transferase 32 U/L (5-31); Bilirubin Total 0.4 mg/dL (0.0-1.0); Blood Urea Nitrogen 16 mg/dL (9-16); Calcium 9.4 mg/dL (8.4-10.2); Carbon Dioxide 27 mmol/L (22-29); Chloride 105 mmol/L (96-108); Cholesterol 179 mg/dL (<200); Estimated Glomerular Filt Rate > 60; Glucose Fasting 106 mg/dL (60-99); HBS Num1 0.17 mIU/mL (0-7.99); HBc Num1 0.07 S/CO (0.00-0.79); HBsAGNum1 0.36 S/CO (0.00-0.99); HDL Cholesterol 45 mg/dL (>40); Hepatitis B Core Antibody Nonreactive (Nonreactive); Hepatitis B Surface Antigen Negative (Negative); LDL Cholesterol Calculated 96 mg/dL (<100); Potassium 4.2 mmol/L (3.3-5.1); Sodium 138 mmol/L (135-145); Triglycerides 190 mg/dL (<150); ~HepC Num1 0.08 S/CO (0.00-0.79); ~Hepatitis B Surface Antibody NONREACTIVE (Nonreactive); ~Hepatitis C Antibody Nonreactive (Nonreactive)
[2023-08-06 12:10] LABS: TSH reflex Free T4 2.66 uIU/mL (0.32-4.0)
[2023-08-06 15:32] LABS: Estimated Average Glucose 120 mg/dL; Hemoglobin A1c % 5.8 % (<6.0)
== END 2023-08-06 09:07 | disposition home or self-care (01) ==
LOC: HO.HMGCLDS 09:06
PROVIDERS: PCP Internal Medicine; Visit Provider Internal Medicine
DX: Z00.00 Encounter for general adult medical examination without abnormal findings (principal); E03.9 Hypothyroidism, unspecified; R73.9 Hyperglycemia, unspecified
CPT/HCPCS: 36415; 80053; 80061; 83036; 84443; 85025; 86704; 86706; 86803; 87340

== ENCOUNTER 2023-08-11 10:15 | Outpatient (AMB) | payer BC, SELFPAY ==
[2023-08-11 10:52] VITALS: BP 132/78; PULSE 75; O2SAT 98; BMI 30.9
--- NOTE | 2023-08-11 10:52 | MHC.PC.OV ---
Vital Signs 08/11/23 10:52 Height 5 ft 4 in Weight 180 lb BMI 30.9 BP 132/78 Blood Pressure Location Lt brachial Position Sitting Pulse 75 Pulse Source Pulse Oximeter Pulse Oximetry (%) 98 Oxygen Delivery Method Room Air Intake Visit Reasons: Annual PE Intake Note: Pt is here today for PE. Allergies meperidine [Meperidine] Allergy (Intermediate, Verified 08/11/23 10:56) Severe Nausea and Vomiting tramadol [Tramadol] Allergy (Mild, Verified 08/11/23 10:56) Nausea and Vomiting, GI Upset erythromycin base Allergy (Unknown, Verified 08/11/23 10:56) Gastrointestinal Upset hydromorphone Allergy (Unknown, Verified 08/11/23 10:56) Hallucinations moxifloxacin [From Avelox] Allergy (Unknown, Verified 08/11/23 10:56) Diarrhea, Nausea and Vomiting, GI Upset amoxicillin [From Augmentin] Adverse Reaction (Unknown, Verified 08/11/23 10:56) Gastrointestinal Upset celecoxib [From Celebrex] Adverse Reaction (Unknown, Verified 08/11/23 10:56) Gastrointestinal Upset, nausea and vomiting clavulanic acid [From Augmentin] Adverse Reaction (Unknown, Verified 08/11/23 10:56) Gastrointestinal Upset tizanidine [From Zanaflex] Adverse Reaction (Unknown, Verified 08/11/23 10:56) Gastrointestinal Upset, Vomiting, Nausea and Vomiting valdecoxib [From Bextra] Adverse Reaction (Unknown, Verified 08/11/23 10:56) Gastrointestinal Upset, Nausea and vomiting Medication List - Last Reconciled 08/11/23 by Angela Rivera MD latanoprost 0.005% 1 drp ophthalmic (eye) BEDTIME levothyroxine 75 mcg PO QAM pantoprazole 40 mg PO DAILY Tobacco use date assessed: 08/11/23 Fall risk assessment: No Falls in past year Last assessed Fall Risk: 08/11/23 Dental Screening Dental Screen Date: 08/11/23 Did you have a dental visit in the last 12 months?: Yes Did you have a dental problem in the last 6 months where you did not have access to dental care?: No Was dental information given to patient?: Patient has dentist HPI Annual PE HPI Details Pt presents for PE. PFSH Medical History Lower back pain Annual physical exam Osteoarthritis Osteopenia Bilateral renal cysts Endometrial cancer Glaucoma GERD (gastroesophageal reflux disease) Hypothyroidism Dysuria History of uterine cancer Surgical History H/O colonoscopy Hx of appendectomy History of tonsillectomy History of hysterectomy Social History Housing: House Alcohol intake: never Patient Tobacco Use Status: Never used Tobacco e-Cigarette/Vaping Use: Never Used Second Hand Smoke Exposure: No service: No Current occupational status: retired Current occupation: right handed Cognitive needs: No Hearing needs: No Vision needs: No Questionnaire PHQ-9 Over the last 2 weeks, how often have you been bothered by any of the following problems? 1. Little interest or pleasure in doing things: not at all 2. Feeling down, depressed, or hopeless: not at all 3. Trouble falling or staying asleep, or sleeping too much: not at all 4. Feeling tired or having little energy: not at all 5. Poor appetite or overeating: not at all 6. Feeling bad about yourself - or that you are a failure or have let yourself or your family down: not at all 7. Trouble concentrating on things, such as reading the newspaper or watching television: not at all 8. Moving or speaking so slowly that other people could have noticed. Or the opposite - being so fidgety or restless that you have been moving around a lot more than usual: not at all 9. Thoughts that you would be better off or of hurting yourself in some way: not at all Total score: 0 Depression Screening Interpretation: Negative Depression Screening Done: Yes Source: Developed by Drs. Morro Mcqueen, Annmarie Fleming, Blayne Graf and colleagues, with an educational suyapa from [employer]. Thrive Questionnaire Date Thrive assessed: 08/11/23 I am a: Patient What is your living situation today?: I have a steady place to live Within the past 12 months, did the food you bought not last and you didn't have the money to get more?: Never true Within the past 12 months, did you worry whether your food would run out before you got money to buy more?: Never true Do you have trouble paying for medicines?: No Do you have trouble getting transportation to medical appointments?: No Do you have trouble paying your heating and electricity bill?: No Do you have trouble taking care of your child, family member or friend?: No Do you have trouble with day-to-day activities such as bathing, preparing meals, shopping, managing finances, etc.?: No Are you currently unemployed and looking for a job?: No Are you interested in more education?: No Please select the resources that you would like help with: None THRIVE Score: 0 AUDIT C Alcohol Use Questionnaire (AUDIT-C) 1. How often do you have a drink containing alcohol?: Never 3. How often do you have six or more drinks on one occasion?: Never Total Score: 0 ISABELLA-7 AMB Questionnaire ISABELLA-7 Date ISABELLA - 7 assessed: 08/11/23 Feeling nervous, anxious, or on edge: 0 = Not at all Not being able to stop or control worryin = Not at all Worrying too much about different things: 0 = Not at all Trouble relaxin = Not at all Being so restless that it is hard to sit still: 0 = Not at all Becoming easily annoyed or irritable: 0 = Not at all Feeling afraid as if something awful might happen: 0 = Not at all Total ISABELLA-7 score (0-4 normal; 5-9 mild; 10-14 moderate; 15-21 severe): 0 Source: Developed by Drs. Morro Mcqueen, Annmarie Fleming, Blayne Graf and colleagues, with an educational suyapa from [employer]. Review of Systems Const All systems reviewed & are unremarkable except as noted in HPI and below Reports no additional complaints Eyes Reports no additional complaints ENT Reports no additional complaints Card Reports no additional complaints Resp Reports no additional complaints GI Reports no additional complaints Reports no additional complaints Physical exam (Primary Care) Vital Signs: Last Vital Signs Pulse 75 08/11/23 10:52 BP 132/78 08/11/23 10:52 Pulse Ox 98 08/11/23 10:52 Oxygen Delivery Method Room Air 08/11/23 10:52 BMI result Body Mass Index 30.9 Tobacco/Smoking Status: Tobacco use Status Tobacco use date assessed 08/11/23 08/11/23 11:00 Patient Tobacco Use Status Never used Tobacco 08/11/23 11:00 e-Cigarette/Vaping Use Never Used 08/11/23 10:54 PHQ-9: PHQ-9 Score PHQ-9: Total score 0 08/11/23 11:00 Depression Screening Interpretation: Negative Thrive Assessment: Date of Thrive Assessment Date Thrive assessed 08/11/23 08/11/23 11:00 Const General: no acute distress HENMT Head: Yes normal to inspection Ears: hearing grossly normal bilaterally General nose exam: Normal external nose present Face and sinus: Yes normal facial exam Mouth: Normal oral and palatal mucosa present Throat: Yes posterior oropharynx normal Eyes General: appearance normal, both eyes and all related structures Neck Neck: Yes no lymphadenopathy and Yes supple Resp Effort & Inspection: normal respiratory effort Auscultation: clear to auscultation bilaterally Cardio Rhythm: regular rhythm Heart sounds: S1 normal heart sound present and S2 normal heart sound present GI Inspection: Yes normal to inspection Palpation (GI): Soft to palpation Percussion: Yes normal to percussion Auscultation: normal bowel sounds Assessment and Plan Assessment & Plan (1) Annual physical exam: Code(s): Z00.00 - Encounter for general adult medical examination without abnormal findings Plan: Well-balanced diet regular physical activity discussed with the patient (2) Hyperglycemia: Comment: A1C 5.8 09/16 Code(s): R73.9 - Hyperglycemia, unspecified Plan: Continue ADA diet increase exercise weight loss discussed with the patient (3) Elevated LFTs: Code(s): R79.89 - Other specified abnormal findings of blood chemistry Plan: Monitor liver function avoid NSAIDs and alcohol (4) Hypothyroidism: Comment: thyroid nodule R 0.5cm US 2016 no need for repeat Code(s): E03.9 - Hypothyroidism, unspecified Plan: Continue levothyroxine follow-up in 6 months Orders: Orders TSH reflex Free T4 6 Months R73.9 - Hyperglycemia, unspecified, R79.89 - Other specified abnormal findings of blood chemistry, Z00.00 - Encounter for general adult medical examination without abnormal findings Microalbumin, Random (w Creat) 6 Months R73.9 - Hyperglycemia, unspecified, R79.89 - Other specified abnormal findings of blood chemistry, Z00.00 - Encounter for general adult medical examination without abnormal findings Lipid Panel 6 Months R73.9 - Hyperglycemia, unspecified Comprehensive [place]. Panel Fast 6 Months R73.9 - Hyperglycemia, unspecified, R79.89 - Other specified abnormal findings of blood chemistry, Z00.00 - Encounter for general adult medical examination without abnormal findings Hemoglobin A1c 6 Months R73.9 - Hyperglycemia, unspecified, R79.89 - Other specified abnormal findings of blood chemistry, Z00.00 - Encounter for general adult medical examination without abnormal findings Complete Blood Count Auto Diff 6 Months R73.9 - Hyperglycemia, unspecified, R79.89 - Other specified abnormal findings of blood chemistry, Z00.00 - Encounter for general adult medical examination without abnormal findings Coding Level of Care Code Est Pt Prev Care >65y(68822) Diagnoses Annual physical exam Z00.00 Hyperglycemia R73.9 Elevated LFTs R79.89 Hypothyroidism E03.9
== END 2023-08-11 11:22 | disposition home or self-care (01) ==
PROVIDERS: PCP Internal Medicine; Visit Provider Internal Medicine
DX: Z00.00 Encounter for general adult medical examination without abnormal findings (principal); R73.9 Hyperglycemia, unspecified; E03.9 Hypothyroidism, unspecified
CPT/HCPCS: 99397

== ENCOUNTER 2023-10-17 05:18 | Emergency (ER) | payer BC, SELFPAY ==
--- NOTE | ~2023-10-17 | CT_ITS ---
EXAMINATION: CT HEAD WITHOUT CONTRAST CLINICAL INFORMATION: Dizziness. COMPARISON: 07/29/2017 TECHNIQUE: Contiguous axial imaging was performed from the skull base to vertex without intravenous administration of contrast. This CT examination was performed using dose optimization techniques as appropriate, variously including the following: *Automated exposure control *Adjustment of mA and/or kV according to patient size (this includes techniques or standardized protocols for targeted exams where dose is matched to indication/reason for exam; i.e. extremities or head) *Use of iterative reconstruction technique DLP: 580 mGy-cm FINDINGS: The lateral, third and fourth ventricles are normally outlined. The cortical sulci and basal cisterns are normally outlined as well. There is moderate bilateral periventricular and central white matter diminished attenuation. There is no acute territorial defect, hemorrhage or midline shift. The extra-axial spaces are unremarkable. Calvarium/scalp: Intact. Maxillofacial sinuses and mastoids: There is maxillary sinus mucosal thickening. The remaining visualized maxillofacial sinuses and mastoids are clear. CT/CT head/brain wo IV con IMPRESSION: 1. No acute intracranial process seen. 2. Moderate chronic small vessel ischemic changes in both cerebral hemispheres. Similar finding was seen previously.
--- NOTE | ~2023-10-17 | CT_ITS ---
EXAMINATION: CTA NECK WITH CONTRAST (STROKE) CTA BRAIN WITH CONTRAST (STROKE) CLINICAL INFORMATION: Dizziness COMPARISON: None available. TECHNIQUE: CTA of the head and neck was performed in the axial plane from the mediastinum to the skull vertex using 70 mL Omnipaque 350 intravenous contrast. Additional reformatted multiplanar images including maximum intensity projection MIP images are generated on the CT workstation. This CT examination was performed using dose optimization techniques as appropriate, variously including the following: *Automated exposure control *Adjustment of mA and/or kV according to patient size (this includes techniques or standardized protocols for targeted exams where dose is matched to indication/reason for exam; i.e. extremities or head) *Use of iterative reconstruction technique DLP: 1489 mGy-cm FINDINGS: The degree of stenosis determined by criteria similar to NASCET. CTA NECK: Three-vessel aortic arch. The innominate and bilateral subclavian arteries are patent. The origins and cervical segments of the common carotid arteries as well as the common carotid artery bifurcations are patent bilaterally. The cervical segments of the internal carotid arteries are also patent bilaterally. The origins and cervical segments of the vertebral arteries are patent bilaterally. No hemodynamically significant stenosis, dissection, or aneurysm. The visualized branches of the external carotid arteries are unremarkable. CTA HEAD: Mild atherosclerotic calcifications of the bilateral carotid siphons. Anterior circulation: The petrous, cavernous, and supraclinoid segments of the internal carotid arteries are patent bilaterally. The major branches of the anterior and middle cerebral arteries as well as the anterior communicating artery complex are patent. No large vessel occlusion, saccular aneurysm, or dissection. Posterior circulation: The intracranial vertebral arteries are patent bilaterally. The basilar artery is normal in course and caliber. The posterior cerebral and superior cerebellar arteries arise normally from the basilar summit. No aneurysm. On delayed imaging, the venous structures demonstrate normal contrast opacification. No filling defect. No abnormal intraparenchymal enhancement. Soft tissues: No suspicious neck mass or cervical adenopathy. Lungs: Bilateral atelectasis. Bones: No acute osseous abnormality. No lytic or blastic osseous lesions. Multilevel degenerative changes of the visualized spine. CT/CT angio head neck stroke IMPRESSION: CTA head demonstrates no large vessel occlusion, saccular aneurysm, or dissection. CTA neck demonstrates no hemodynamically significant stenosis, dissection, or aneurysm. The above findings were communicated to Aminata Antonio at 9:37am on 10/17/2023.
--- NOTE | ~2023-10-17 | MR_ITS ---
EXAMINATION: MR BRAIN WITHOUT CONTRAST CLINICAL INFORMATION: Dizziness, visual changes, weakness, rule out posterior stroke COMPARISON: CTA head and neck same day. TECHNIQUE: MRI of the brain was obtained using routine sequences without contrast. FINDINGS: There is a focus of ADC hypointensity involving the medial aspect of the right cerebellar hemisphere inferiorly (series 400, image 5 of 31) without corresponding DWI of FLAIR hyperintensity. This is favored to represent an artifact. Otherwise, no acute intracranial hemorrhage or infarct. Scattered and confluent periventricular and deep white matter T2/FLAIR hyperintensities, nonspecific however commonly seen with small vessel ischemic disease. No midline shift or hydrocephalus. No acute extra-axial fluid collections. The osseous structures are unremarkable. The pituitary gland, pineal gland and remaining midline structures are unremarkable. No orbital pathology. Mucosal thickening of the paranasal sinuses. The mastoid air cells are clear. MR/MR head/brain wo con IMPRESSION: -Focus of ADC hypointensity involving the medial aspect of the right cerebellar hemisphere inferiorly without corresponding DWI or FLAIR hyperintensity, favored to be artifactual. Otherwise, no acute intracranial hemorrhage or infarct. -Chronic microangiopathy.
[2023-10-17 05:25] VITALS: BP 186/92; BP 190/90; PULSE 50; PULSE 61; RESP 16; TEMP 36.2; O2SAT 94; O2SAT 97; BMI 29.2
--- NOTE | 2023-10-17 05:29 | ECG_ITS ---
Test Reason : ACUTE DIZZINESS Blood Pressure : / mmHG Vent. Rate : 056 BPM Atrial Rate : 056 BPM P-R Int : 164 ms QRS Dur : 090 ms QT Int : 458 ms P-R-T Axes : 059 049 054 degrees QTc Int : 441 ms Sinus bradycardia with Premature atrial complexes Otherwise normal ECG When compared with ECG of 11-FEB-2009 10:29, Premature atrial complexes are now Present Referred By: Generic ED Physician Electronically Signed By:Cristofer Jimenez
[2023-10-17 05:41] LABS: Basophils Percent Auto 0.5 % (0-2); Eosinophils Absolute Auto 0.2 X10*3/uL (0.0-0.4); Eosinophils Percent Auto 1.9 % (0-4); Hematocrit 43.7 % (37.0-47.0); Hemoglobin 15.3 g/dl (12.0-16.0); Imm Gran Abs Auto 0.05 X10*3/uL (0.00-0.03); Imm Gran Pct Auto 0.6 % (0.0-0.4); Lymphocytes Absolute Auto 2.7 X10*3/uL (1.2-4.9); MANUAL DIFF FLAG NO; Mean Corpuscular Hemoglobin 31.2 pg (27.0-33.0); Mean Corpuscular Volume 89.2 fL (80.0-98.0); Mean Platelet Volume 11.1 fL (9.4-12.3); Monocytes Absolute Auto 0.7 X10*3/uL (0.1-1.2); Monocytes Percent Auto 8.4 % (2-11); Neutrophils Absolute Auto 4.8 x10*3/uL (2.0-8.3); Neutrophils Percent Auto 56.6 % (45-73); Platelet Count 219 X10*3/uL (160-400); Red Cell Distribution Width 13.3 % (11.0-16.0); White Blood Count 8.5 X10*3/uL (4.8-10.8)
--- NOTE | 2023-10-17 05:51 | PC.NURSE ---
Patient BIBA from home for evaluation of dizziness, photophobia, nausea, 1 episode of vomiting-onset of symptoms 1 hour prior to arrival to ED. EKG completed and read by Dr. Bray, 20 G IV line established in R AC, labs drawn, patient was swabbed for COVID-19 and Influenza, specimens sent to lab. Dr. Bray made aware of high BP's 190-20/70-92. Plan for CT of head and brain. Patient's at bedside, call herring in patient's reach, plan of care ongoing.
[2023-10-17 05:53] LABS: COVID-19 Test Negative (Negative); IDNOW Serial# 152EDE1D
[2023-10-17 05:55] LABS: IDNOW Serial# 08D9AD1C; Influenza A Negative (Negative); Influenza B2 Negative (Negative)
[2023-10-17 05:57] LABS: Alanine Aminotransferase 20 U/L (0-31); Albumin Level 3.7 g/dL (3.5-5.0); Alkaline Phosphatase 68 U/L (39-117); Anion Gap 12 (12-20); Aspartate Amino Transferase 17 U/L (5-31); Bilirubin Total 0.4 mg/dL (0.0-1.0); Blood Urea Nitrogen 10 mg/dL (9-16); Calcium 8.4 mg/dL (8.4-10.2); Carbon Dioxide 22 mmol/L (22-29); Chloride 111 mmol/L (96-108); Creatinine Clr Calc Pharmacy 69.7; Estimated Glomerular Filt Rate > 60; Glucose Random 122 mg/dL (60-115); Lipase 9 U/L (8-78); Potassium 3.6 mmol/L (3.3-5.1); Sodium 141 mmol/L (135-145)
[2023-10-17 06:03] LABS: Troponin-I High Sensitivity < 2.7 ng/L (<3.5-17.0)
[2023-10-17 07:15] VITALS: BP 183/70; PULSE 60; RESP 18; O2SAT 93
--- NOTE | 2023-10-17 07:28 | PC.NURSE ---
Assumed care of patient, patient incnt of urine, changed and repositioned, patient with eyes closed able to answer questions, states has never been dizzy before, denies hx of hypertension.
[2023-10-17 07:48] VITALS: TEMP 35.9
--- NOTE | 2023-10-17 08:28 | ED.GENADULT ---
HPI - General Adult General Chief complaint: Dizziness Stated complaint: DIZZINESS,N/V Time Seen by Provider: 10/17/23 08:27 Source: patient and family Mode of arrival: EMS Limitations: other (poor historian ) History of Present Illness ED Provider: Brianne MCKEON HPI narrative: 78-year-old female history of hypothyroidism, hyperglycemia, UTIs presenting to the emergency department with severe dizziness sudden in onset awoke her from her sleep with associated visual disturbances and photophobia with nausea and vomiting. This has never happened to her before. She states it was sudden in onset. She does not feel like she is able to walk. The only thing that makes this better is closing her eyes. Rapid movements make it worse. She does report weakness throughout her entire body and she just feels terrible. Last known well time is unclear. She thinks she woke up around 03:24 however she states yesterday she was not feeling normal eat. Patient is not on blood thinners. She is accompanied by her who is also not the best historian. There were no fall or head strike. Patient denies chest pain, shortness of breath, fevers, chills, abdominal pain, sick contacts. NIH stroke scale unable to obtain due to patient not following commands states too uncomfortable. Related Data Home Medications ?Medication ?Instructions ?Recorded ?Confirmed latanoprost 0.005 % eye drops 1 drp ophthalmic (eye) BEDTIME 03/02/20 08/11/23 Previous Rx's ?Medication ?Instructions ?Recorded pantoprazole 40 mg tablet,delayed 40 mg PO DAILY #90 tabs 04/30/23 release levothyroxine 75 mcg tablet 75 mcg PO QAM #90 tabs 07/12/23 meclizine 25 mg tablet 25 mg PO DAILY PRN dizziness #14 10/17/23 tabs Allergies Allergy/AdvReac Type Severity Reaction Status Date / Time meperidine [Meperidine] Allergy Intermediate Severe Verified 10/17/23 05:28 Nausea and Vomiting tramadol [Tramadol] Allergy Mild Nausea and Verified 10/17/23 05:28 Vomiting, GI Upset erythromycin base Allergy Unknown Gastrointestinal Verified 10/17/23 05:28 Upset hydromorphone Allergy Unknown Hallucinati Verified 10/17/23 05:28 ons moxifloxacin [From Avelox] Allergy Unknown Diarrhea, Verified 10/17/23 05:28 Nausea and Vomiting, GI Upset amoxicillin [From Augmentin] AdvReac Unknown Gastrointestinal Verified 10/17/23 05:28 Upset celecoxib [From Celebrex] AdvReac Unknown Gastrointestinal Verified 10/17/23 05:28 Upset, nausea and vomiting clavulanic acid AdvReac Unknown Gastrointestinal Verified 10/17/23 05:28 [From Augmentin] Upset tizanidine [From Zanaflex] AdvReac Unknown Gastrointestinal Verified 10/17/23 05:28 Upset, Vomiting, Nausea and Vomiting valdecoxib [From Bextra] AdvReac Unknown Gastrointestinal Verified 10/17/23 05:28 Upset, Nausea and vomiting Review of Systems Review of Systems: Yes all other systems are reviewed and are negative PMFSH Past Medical History Attestation statement: The following information was validated with the patient. Source: old records reviewed and nursing notes reviewed Medical History Lower back pain Annual physical exam Osteoarthritis Osteopenia Bilateral renal cysts Endometrial cancer Glaucoma GERD (gastroesophageal reflux disease) Hypothyroidism Dysuria History of uterine cancer Surgical History H/O colonoscopy Hx of appendectomy History of tonsillectomy History of hysterectomy Social History Social History Housing: House Alcohol intake: never Patient Tobacco Use Status: Never used Tobacco Smoked in Last 30 Days: No e-Cigarette/Vaping Use: Never Used Second Hand Smoke Exposure: No Use of substances other than those prescribed or required for medical reasons: No Advance Directives: No Advance Directives Information Provided: Yes Do you have a plan to hurt others: No Plan service: No Current occupational status: retired Current occupation: right handed Cognitive needs: No Hearing needs: No Vision needs: No Physical Exam ED Vital Signs: Vital Signs - 24 hr 10/17/23 05:25 10/17/23 07:15 10/17/23 07:48 Temperature 97.2 F 96.6 F L Pulse Rate 61 60 Respiratory Rate 16 18 Blood Pressure 186/92 H 183/70 H Pulse Oximetry 97 93 Oxygen Delivery Method Room Air Room Air 10/17/23 08:54 10/17/23 11:29 Temperature 97.4 F Pulse Rate 62 72 Respiratory Rate 18 12 Blood Pressure 167/88 H 161/67 H Pulse Oximetry 98 94 Oxygen Delivery Method Room Air Room Air BMI result Body Mass Index 29.2 vss- slight HTN Appearance: Alert.? Oriented X3.? No acute cardiopulmonary distress.? + appears uncomfortable, lying with her eyes closed, not moving. Head: Normocephalic, atraumatic, no step-offs or deformities Eyes: Pupils equal, round and reactive to light.? Neck: Normal inspection.? Neck supple.? CVS: Normal heart rate and rhythm.? Pulses normal.? Respiratory: No respiratory distress.? Breath sounds normal.? Abdomen: Soft and nontender.? Skin: Skin warm and dry.? Normal skin color.? Normal skin turgor.? Extremities: No lower extremity edema.? No calf ttp. Global weakness Back: No midline tenderness, no C-spine tenderness, full range of motion, no CVA tenderness bilaterally Neuro: Oriented X 3.? No motor deficit.? No sensory deficit. Attempted to do [id number] however states it is making her more dizzy she closed her eyes shortly after. Course Reevaluation(s) Reevaluation #1: Discuss this case with neurology who recommends stat CTA stroke to rule out subarachnoid hemorrhage. If this is negative MRI of head must be obtained. MRI should, after CTA. CBC unremarkable. Chemistry no acute findings requiring intervention. Negative troponin. Coags unremarkable. Bedside PT INR within limits. Head CT no acute intracranial process test. Moderate chronic small-vessel ischemic changes in both cerebral hemispheres similar findings previously unlikely acute. CTA will be added to the workup at this time. And MRI as well. Time: 08:52 Reevaluation #2: CTA negative, MRI pending. Time: 09:38 Reevaluation #3: Patient feels much better after meclizine. Awake normal neuro. MRI pending Negative NIH stroke scale. Time: 13:45 Additional Reevaluation(s): 1421 Patient feels so much better, ambulatory around the department negative NIH stroke scale. Brain MRI no ischemic changes I did review the MRI and imaging with my attending Dr. Brennan who agrees w/ diagnosis and treatment plan. Educated patient on diagnosis and treatment plan, answered all question, patient verbalizes understanding. At this time patient will be discharged home, advised to return with new or worsening symptoms. Educated on worrisome signs and symptoms and when to return. At this time I feel comfortable discharge home. Medications Administered Discontinued Medications Generic Name Dose Route Start Last Admin Trade Name Thee PRN Reason Stop Dose Admin Acetaminophen 975 mg 10/17/23 09:39 10/17/23 10:15 Acetaminophen 325 Mg Tablet PO 10/17/23 09:40 975 mg ONCE ONE Administration Sodium Chloride 500 mls @ 500 mls/hr 10/17/23 08:45 10/17/23 10:15 Ns IV 10/17/23 09:44 Infused .Q1H FARAZ Infusion Iohexol 100 ml 10/17/23 09:18 10/17/23 09:18 Iohexol 350 Mg/Ml 100 Ml Infus..Btl IV 10/17/23 09:19 70 ml ONCE ONE Administration Meclizine HCl 25 mg 10/17/23 08:41 10/17/23 09:19 Meclizine Hcl 25 Mg Tablet PO 10/17/23 08:42 25 mg ONCE ONE Administration Medical Decision Making Medical Decision Making [facility] Narrative: 0846 78 year old f presents w/ severe dizziness, visual disturbances and n/v sudden in onset Physical exam patient barely purchase hitting an exam alert and oriented x4. Global weakness. Difficulty with [id number]. History and physical exam concerning for posterior circulating stroke versus subarachnoid hemorrhage vs BPPV vs vertigo . Unlikely meningitis, encephalitis. Other differentials include viral illness, UTI. Will rule out metabolic derangements. Plan at this time labs, imaging and CT were ordered prior to me seeing this patient. After about you waiting this patient I am concerned for stroke. Will reach out to neurology at this time. Differential Diagnosis Differential Diagnoses: The differential diagnosis associated with the presentation includes History and physical exam concerning for posterior circulating stroke versus subarachnoid hemorrhage vs BPPV vs vertigo . Unlikely meningitis, encephalitis. Other differentials include viral illness, UTI. Will rule out metabolic derangements. Admission/Observation Consideration of admission/observation: Escalation of care including admission/observation considered Likely Consult Healthcare Provider Management of the patient was discussed with: Cooker [employer] Filling Lab Data [facility] Lab Attestation statement: I reviewed the patient's lab results. 10/17/23 05:34 10/17/23 05:34 Labs: Lab Results 10/17/23 10/17/23 10/17/23 Range/Units 05:34 08:47 12:11 WBC 8.5 (4.8-10.8) X10*3/uL RBC 4.90 (4.20-5.50) X10*6/uL Hgb 15.3 (12.0-16.0) g/dl Hct 43.7 (37.0-47.0) % MCV 89.2 (80.0-98.0) fL MCH 31.2 (27.0-33.0) pg MCHC 35.0 (31.0-35.0) g/dl RDW 13.3 (11.0-16.0) % Plt Count 219 (160-400) X10*3/uL MPV 11.1 (9.4-12.3) fL Immature Gran % (Auto) 0.6 H (0.0-0.4) % Neut % (Auto) 56.6 (45-73) % Lymph % (Auto) 32.0 (20-40) % [place] % (Auto) 8.4 (2-11) % Eos % (Auto) 1.9 (0-4) % Baso % (Auto) 0.5 (0-2) % Lymph # (Auto) 2.7 (1.2-4.9) X10*3/uL [place] # (Auto) 0.7 (0.1-1.2) X10*3/uL Eos # (Auto) 0.2 (0.0-0.4) X10*3/uL Baso # (Auto) 0.0 (0.0-0.2) X10*3/uL Abs Immat Gran (auto) 0.05 H (0.00-0.03) X10*3/uL Absolute Neuts (auto) 4.8 (2.0-8.3) x10*3/uL Absolute Nucleated RBC 0.000 (0.0-0.012) X10*3/uL Nucleated RBC % (auto) 0.0 (0.0-0.2) /100WBC Whole Blood PT 13.6 H (11.1-13.5) sec Whole Blood INR 1.1 (0.9-1.1) Sodium 141 (135-145) mmol/L Potassium 3.6 (3.3-5.1) mmol/L Chloride 111 H (96-108) mmol/L Carbon Dioxide 22 (22-29) mmol/L Anion Gap 12 (12-20) BUN 10 (9-16) mg/dL Creatinine 0.69 (0.5-1.4) mg/dL Estim Creat Clear Calc 69.7 Estimated GFR > 60 POC Glucose 150 H (60-115) mg/dL Random Glucose 122 H (60-115) mg/dL Calcium 8.4 D (8.4-10.2) mg/dL Total Bilirubin 0.4 (0.0-1.0) mg/dL AST 17 (5-31) U/L ALT 20 (0-31) U/L Alkaline Phosphatase 68 (39-117) U/L Troponin I High Sens < 2.7 (<3.5-17.0) ng/L Total Protein 6.0 L (6.5-8.0) g/dL Albumin 3.7 (3.5-5.0) g/dL Lipase 9 (8-78) U/L Urine Color Yellow Urine Appearance Clear Urine pH 8.0 (5.0-9.0) Ur Specific Cameron 1.020 (1.005-1.025) Urine Protein Negative (Neg-Trace) mg/dL Urine Glucose (UA) Negative (Negative) mg/dL Urine Ketones Negative (Negative) mg/dL Urine Blood Negative (Negative) Urine Nitrite Negative (Negative) Ur Leukocyte Esterase Trace H (Negative) Urine RBC 0-2 (0-2) /HPF Urine WBC 0-5 (0-5) /HPF Ur Squamous Epith Cells 0-2 (0-2) /HPF Urine Bacteria None Seen (None Seen) Hyaline Casts 0-2 (0-2) /LPF COVID-19 (VANCE) Negative (Negative) COVID-19 Clin Com See Note Influenza Type A (LATRICE) Negative (Negative) Influenza Type B (LATRICE) Negative (Negative) Influenza A & B Note See Note Independent Interpretation I performed an independent interpretation of an: EKG and CT Scan Radiology Impression Discussion of test interpretation with radiology: I have reviewed the radiologist's reading. External Record Review External record reviewed: Inpatient record, Office record, Outpatient record, Prior outpatient labs, Prior outpatient radiology, Primary care record and Outside ED record Chronic Conditions Patient?s care impacted by: Other (hypothyroid ) Critical Care Time Critical Care Time Critical Care Time: Yes Total Critical Care Time: 60 Attestation: I attest to this time spent taking care of the patient, obtaining history, physical, reviewing labs, imaging, speaking to my attending, specialist or hospitalist. Discharge Plan Discharge Clinical Impression: Dizziness, Weakness, Benign paroxysmal positional vertigo Patient Disposition: Home, Self-Care Instructions: Vertigo (ED), Benign Paroxysmal Positional Vertigo (ED), Weakness (ED) Additional Instructions: Take your medications as prescribed. If you were prescribed antibiotics today, it is important that you take your medication to their entirety, do not skip any doses, do not finish them early. Follow-up with your primary care provider this week. Return to the emergency department with new or worsening symptoms. Such as fevers, chills, chest pain, shortness of breath, nausea, vomiting, dizziness, headache, vision changes, lethargy In case of emergency call 911 MR/MR head/brain wo con IMPRESSION: -Focus of ADC hypointensity involving the medial aspect of the right cerebellar hemisphere inferiorly without corresponding DWI or FLAIR hyperintensity, favored to be artifactual. Otherwise, no acute intracranial hemorrhage or infarct. -Chronic microangiopathy. CT/CT angio head neck stroke IMPRESSION: CTA head demonstrates no large vessel occlusion, saccular aneurysm, or dissection. CTA neck demonstrates no hemodynamically significant stenosis, dissection, or aneurysm. The above findings were communicated to Aminata Antonio at 9:37am on 10/17/2023. CT/CT head/brain wo IV con IMPRESSION: 1. No acute intracranial process seen. 2. Moderate chronic small vessel ischemic changes in both cerebral hemispheres. Similar finding was seen previously. Prescriptions: New meclizine 25 mg tablet 25 mg PO DAILY PRN (Reason: dizziness) Qty: 14 0RF No Action pantoprazole 40 mg tablet,delayed release (DR/EC) 40 mg PO DAILY Qty: 90 3RF levothyroxine 75 mcg tablet 75 mcg PO QAM Qty: 90 3RF latanoprost 0.005 % drops 1 drp ophthalmic (eye) BEDTIME Referrals: Physician,Unknown J [Primary Care Provider] - 2 days Print Language: [place] Citizen
--- NOTE | 2023-10-17 08:43 | ECG_ITS ---
Test Reason : stroke alert Blood Pressure : / mmHG Vent. Rate : 073 BPM Atrial Rate : 073 BPM P-R Int : 150 ms QRS Dur : 090 ms QT Int : 424 ms P-R-T Axes : 018 058 052 degrees QTc Int : 467 ms Normal sinus rhythm Nonspecific ST abnormality Abnormal ECG When compared with ECG of 17-OCT-2023 05:31, Premature atrial complexes are no longer Present Referred By: Aminata Antonio Electronically Signed By:Cristofer Jimenez
[2023-10-17 08:51] LABS: Prothrombin Time Whole Bld POC 13.6 sec (11.1-13.5); ~PT, ~INR - Anti Coag Clinic 1.1 (0.9-1.1)
[2023-10-17 08:52] LABS: Glucose, Whole Blood 150 mg/dL (60-115)
[2023-10-17 08:54] VITALS: BP 167/88; PULSE 62; RESP 18; O2SAT 98
[2023-10-17] MEDS: 0.9 % Sodium Chloride 500 ML IV (08:54)
--- NOTE | 2023-10-17 08:59 | PC.NURSE ---
Patient unable to recall when she woke up feeling dizzy, at bedside also unsure when symptoms started
--- NOTE | 2023-10-17 09:03 | PC.NURSE ---
Patient in CT
[2023-10-17] MEDS: iohexoL 350 MG/ML 100 ML INFUS..BTL IV (09:18)
[2023-10-17] MEDS: Meclizine HCl 25 MG TABLET PO (09:19)
--- NOTE | 2023-10-17 09:27 | PC.NURSE ---
MRI screening form completed with patient and , patient asking for to sign d/t dizziness . medicated per mar
[2023-10-17] MEDS: Acetaminophen 325 MG TABLET 975 MG PO (10:15)
--- NOTE | 2023-10-17 10:21 | PC.NURSE ---
Patient sitting up in bed with eyes open, reports feeling much better. Passed swallow eval, denies pain or discomfort
[2023-10-17 11:29] VITALS: BP 161/67; PULSE 72; RESP 12; TEMP 36.3; O2SAT 94
[2023-10-17 12:18] LABS: Appearance Urine Clear; Color Urine Yellow; Glucose Urine UA Negative (Negative); Leukocyte Esterase Urine Trace (Negative); Nitrite Urine Negative (Negative); UMIC TRIGGER UACC YES; Urine Blood Negative (Negative); Urine Ketones Negative (Negative); Urine Protein Negative (Neg-Trace)
[2023-10-17 12:20] LABS: Bacteria Urine None Seen (None Seen); Hyaline Casts Urine 0-2 /LPF (0-2); RBC Urine 0-2 /HPF (0-2); Squamous Epithelial Cell Urine 0-2 /HPF (0-2); WBC Urine 0-5 /HPF (0-5)
--- NOTE | 2023-10-17 12:33 | PC.NURSE ---
patient at MRI
--- NOTE | 2023-10-17 14:12 | MHC.EDTECH ---
pt walked to bathroom with zero assistance, a steady gait, and no complaints of dizziness or lightheadedness. rn aware
--- NOTE | 2023-10-17 14:16 | MHC.EDTECH ---
pt walked back to rom from bathroom with zero assistance and a steady gait, rn aware
[2023-10-17 14:34] VITALS: BP 161/67; PULSE 72; RESP 18; TEMP 36.3; O2SAT 94
== END 2023-10-17 14:35 | disposition home or self-care (01) ==
PROVIDERS: Emergency Provider Emergency Medicine Emergency Medical Services
DX: H81.10 Benign paroxysmal vertigo, unspecified ear (principal); R42 Dizziness and giddiness; R53.1 Weakness
CPT/HCPCS: 70450; 70496; 70498; 70551; 80053; 81001; 82947; 83690; 84484; 85025; 85610; 87502; 87635; 93005; 96360; 99285; Q9967

== ENCOUNTER → 2023-10-17 05:29 | Outpatient (BNV) | payer BC, SELFPAY | PROVIDERS: Emergency Provider Emergency Medicine Emergency Medical Services; Visit Provider Internal Medicine Cardiovascular Disease | DX: R00.1 Bradycardia, unspecified (principal) | CPT/HCPCS: 93010 ==

== ENCOUNTER 2023-10-31 11:27 | Outpatient (AMB) | payer BC, SELFPAY ==
--- NOTE | 2023-10-31 12:11 | MHC.OFFVIS ---
Intake Visit Reasons: Inj-Left knee injection-last inj.- 10/28/22 Intake Note: Erin is a 78 year old female who presents today for a left knee injection, last injection done 10/28/22 with good relief Allergies meperidine [Meperidine] Allergy (Intermediate, Verified 10/17/23 05:28) Severe Nausea and Vomiting tramadol [Tramadol] Allergy (Mild, Verified 10/17/23 05:28) Nausea and Vomiting, GI Upset erythromycin base Allergy (Unknown, Verified 10/17/23 05:28) Gastrointestinal Upset hydromorphone Allergy (Unknown, Verified 10/17/23 05:28) Hallucinations moxifloxacin [From Avelox] Allergy (Unknown, Verified 10/17/23 05:28) Diarrhea, Nausea and Vomiting, GI Upset amoxicillin [From Augmentin] Adverse Reaction (Unknown, Verified 10/17/23 05:28) Gastrointestinal Upset celecoxib [From Celebrex] Adverse Reaction (Unknown, Verified 10/17/23 05:28) Gastrointestinal Upset, nausea and vomiting clavulanic acid [From Augmentin] Adverse Reaction (Unknown, Verified 10/17/23 05:28) Gastrointestinal Upset tizanidine [From Zanaflex] Adverse Reaction (Unknown, Verified 10/17/23 05:28) Gastrointestinal Upset, Vomiting, Nausea and Vomiting valdecoxib [From Bextra] Adverse Reaction (Unknown, Verified 10/17/23 05:28) Gastrointestinal Upset, Nausea and vomiting HPI HPI Inj-Left knee injection-last inj.- 10/28/22: Details: Erin is a 78 year old female who presents today for a left knee injection, last injection done 10/28/22 with good relief. SHe comes in today complaining or left knee pain. She has pain with ambulation and while at rest. [facility] Medical History Lower back pain Annual physical exam Osteoarthritis Osteopenia Bilateral renal cysts Endometrial cancer Glaucoma GERD (gastroesophageal reflux disease) Hypothyroidism Dysuria History of uterine cancer Surgical History H/O colonoscopy Hx of appendectomy History of tonsillectomy History of hysterectomy Social History Housing: House Alcohol intake: never Patient Tobacco Use Status: Never used Tobacco e-Cigarette/Vaping Use: Never Used Second Hand Smoke Exposure: No service: No Current occupational status: retired Current occupation: right handed Cognitive needs: No Hearing needs: No Vision needs: No Physical Exam Const General: no acute distress and alert Orientation/consciousness: patient oriented x3 Neuro General: patient oriented x3 Extrem Other: Left Knee: Skin C/D/I TTP medial compartment Psych Appearance: grossly normal Affect: normal affect Attitude: cooperative Office Procedures Joint Injection/Drain Joint Injection/Drain Details: Injected 1 mL of Decadron and 3 mL 1% lidocaine and 3 mL of 0.25% Marcaine. Site was prepped using aseptic technique. Patient tolerated the procedure well. Primary Site: left knee Approach Used: anterolateral Coding - Large joint Procedure code (CPT) selection complete Assessment & Plan Assessment & Plan (1) Osteoarthritis of left knee: Code(s): M17.12 - Unilateral primary osteoarthritis, left knee Category: Medical Plan: I injected her left knee today. I recommend she continue activity as tolerated. Plan I injected her left knee today, Coding Level of Care Code Est Pt Level 3 (34838) Diagnoses Osteoarthritis of left knee M17.12 CPT Codes Coding - Large joint: 34660 - Large joint ([id number])
== END 2023-10-31 12:20 | disposition home or self-care (01) ==
PROVIDERS: PCP Internal Medicine; Visit Provider Orthopaedic Surgery
DX: M17.12 Unilateral primary osteoarthritis, left knee (principal)
CPT/HCPCS: 20610

== ENCOUNTER → 2023-10-31 11:27 | Outpatient (BNVA) | payer BC, SELFPAY | PROVIDERS: PCP Internal Medicine; Visit Provider Orthopaedic Surgery | DX: M17.12 Unilateral primary osteoarthritis, left knee (principal) | CPT/HCPCS: 20610; J0665; J1100 ==

== ENCOUNTER 2024-01-23 09:09 | Outpatient (REF) | payer BC, SELFPAY ==
[2024-01-23 10:01] LABS: MANUAL DIFF FLAG NO
[2024-01-23 10:07] LABS: Basophils Percent Auto 0.4 % (0-2); Eosinophils Absolute Auto 0.1 X10*3/uL (0.0-0.4); Eosinophils Percent Auto 1.1 % (0-4); Hematocrit 45.7 % (37.0-47.0); Hemoglobin 15.5 g/dl (12.0-16.0); Imm Gran Abs Auto 0.03 X10*3/uL (0.00-0.03); Imm Gran Pct Auto 0.4 % (0.0-0.4); Lymphocytes Absolute Auto 2.4 X10*3/uL (1.2-4.9); Lymphocytes Percent Auto 33.3 % (20-40); Mean Corpuscular HGB Conc 33.9 g/dl (31.0-35.0); Mean Corpuscular Hemoglobin 30.6 pg (27.0-33.0); Mean Corpuscular Volume 90.3 fL (80.0-98.0); Mean Platelet Volume 11.4 fL (9.4-12.3); Monocytes Absolute Auto 0.5 X10*3/uL (0.1-1.2); Monocytes Percent Auto 7.4 % (2-11); Neutrophils Absolute Auto 4.1 x10*3/uL (2.0-8.3); Neutrophils Percent Auto 57.4 % (45-73); Platelet Count 242 X10*3/uL (160-400); Red Blood Count 5.06 X10*6/uL (4.20-5.50); Red Cell Distribution Width 13.2 % (11.0-16.0); White Blood Count 7.2 X10*3/uL (4.8-10.8)
[2024-01-23 10:56] LABS: Alanine Aminotransferase 25 U/L (0-31); Albumin Level 4.2 g/dL (3.5-5.0); Alkaline Phosphatase 77 U/L (39-117); Anion Gap 11 (12-20); Aspartate Amino Transferase 23 U/L (5-31); Bilirubin Total 0.4 mg/dL (0.0-1.0); Blood Urea Nitrogen 10 mg/dL (9-16); Calcium 9.3 mg/dL (8.4-10.2); Carbon Dioxide 26 mmol/L (22-29); Chloride 108 mmol/L (96-108); Cholesterol 190 mg/dL (<200); Estimated Glomerular Filt Rate 57; Glucose Fasting 112 mg/dL (60-99); HDL Cholesterol 49 mg/dL (>40); LDL Cholesterol Calculated 109 mg/dL (<100); Potassium 3.9 mmol/L (3.3-5.1); Sodium 141 mmol/L (135-145); Total Protein 6.9 g/dL (6.5-8.0); Triglycerides 161 mg/dL (<150)
[2024-01-23 10:58] LABS: TSH reflex Free T4 1.93 uIU/mL (0.32-4.0)
[2024-01-23 12:11] LABS: Estimated Average Glucose 117 mg/dL; Hemoglobin A1c % 5.7 % (<6.0)
[2024-01-23 14:05] LABS: Microalbum/Creatinine Ratio Ur 87.4 ug/mg cr (<30)
== END 2024-01-23 09:10 | disposition home or self-care (01) ==
LOC: HO.HMGCLDS 09:09
PROVIDERS: PCP Internal Medicine; Visit Provider Internal Medicine
DX: Z00.00 Encounter for general adult medical examination without abnormal findings (principal); R73.9 Hyperglycemia, unspecified; R79.89 Other specified abnormal findings of blood chemistry
CPT/HCPCS: 36415; 80053; 80061; 82043; 82570; 83036; 84443; 85025

== ENCOUNTER 2024-01-27 10:32 | Outpatient (AMB) | payer BC, SELFPAY ==
[2024-01-27 11:01] VITALS: BP 118/66; PULSE 75; O2SAT 98; BMI 30.2
--- NOTE | 2024-01-27 11:01 | A.OFFPC_ITS ---
Vital Signs 01/27/24 11:01 Height 5 ft 4 in Weight 176 lb BMI 30.2 BP 118/66 Blood Pressure Location Lt brachial Position Sitting Pulse 75 Pulse Source Pulse Oximeter Pulse Oximetry (%) 98 Oxygen Delivery Method Room Air Intake Visit Reasons: 6M F/U Intake Note: Pt is here today for 6 months follow up visit on labs. Allergies meperidine [Meperidine] Allergy (Intermediate, Verified 01/27/24 11:02) Severe Nausea and Vomiting tramadol [Tramadol] Allergy (Mild, Verified 01/27/24 11:02) Nausea and Vomiting, GI Upset erythromycin base Allergy (Unknown, Verified 01/27/24 11:02) Gastrointestinal Upset hydromorphone Allergy (Unknown, Verified 01/27/24 11:02) Hallucinations moxifloxacin [From Avelox] Allergy (Unknown, Verified 01/27/24 11:02) Diarrhea, Nausea and Vomiting, GI Upset amoxicillin [From Augmentin] Adverse Reaction (Unknown, Verified 01/27/24 11:02) Gastrointestinal Upset celecoxib [From Celebrex] Adverse Reaction (Unknown, Verified 01/27/24 11:02) Gastrointestinal Upset, nausea and vomiting clavulanic acid [From Augmentin] Adverse Reaction (Unknown, Verified 01/27/24 11:02) Gastrointestinal Upset tizanidine [From Zanaflex] Adverse Reaction (Unknown, Verified 01/27/24 11:02) Gastrointestinal Upset, Vomiting, Nausea and Vomiting valdecoxib [From Bextra] Adverse Reaction (Unknown, Verified 01/27/24 11:02) Gastrointestinal Upset, Nausea and vomiting Medication List - Last Reconciled 01/27/24 by Angela Rivera MD latanoprost 0.005% 1 drp ophthalmic (eye) BEDTIME levothyroxine 75 mcg PO QAM pantoprazole 40 mg PO DAILY Tobacco use date assessed: 01/27/24 Fall risk assessment: No Falls in past year Dental Screening Dental Screen Date: 01/27/24 Did you have a dental visit in the last 12 months?: Yes Did you have a dental problem in the last 6 months where you did not have access to dental care?: No Was dental information given to patient?: Patient has dentist HPI 6M F/U HPI Details Patient presents for the follow-up of hypothyroidism and chronic GERD stable on current medications. [facility] Medical History (Updated 01/27/24 @ 12:02 by Angela Rivera MD) Lower back pain Annual physical exam Osteoarthritis Osteopenia Bilateral renal cysts Endometrial cancer Glaucoma GERD (gastroesophageal reflux disease) Hypothyroidism Dysuria History of uterine cancer Surgical History H/O colonoscopy Hx of appendectomy History of tonsillectomy History of hysterectomy Social History Housing: House Alcohol intake: never Patient Tobacco Use Status: Never used Tobacco e-Cigarette/Vaping Use: Never Used Second Hand Smoke Exposure: No service: No Current occupational status: retired Current occupation: right handed Cognitive needs: No Hearing needs: No Vision needs: No Questionnaire PHQ-9 Over the last 2 weeks, how often have you been bothered by any of the following problems? 1. Little interest or pleasure in doing things: not at all 2. Feeling down, depressed, or hopeless: not at all 3. Trouble falling or staying asleep, or sleeping too much: not at all 4. Feeling tired or having little energy: not at all 5. Poor appetite or overeating: not at all 8. Moving or speaking so slowly that other people could have noticed. Or the opposite - being so fidgety or restless that you have been moving around a lot more than usual: not at all 9. Thoughts that you would be better off or of hurting yourself in some way: not at all Depression Screening Interpretation: Negative Depression Screening Done: Yes 36854 - PHQ-9 Billing: Yes Source: Developed by Drs. Morro Mcqueen, Annmarie Fleming, Blayne Graf and colleagues, with an educational suyapa from [employer]. Thrive Questionnaire Date Thrive assessed: 01/27/24 I am a: Patient What is your living situation today?: I have a steady place to live Within the past 12 months, did the food you bought not last and you didn't have the money to get more?: Never true Within the past 12 months, did you worry whether your food would run out before you got money to buy more?: Never true Do you have trouble paying for medicines?: No Do you have trouble getting transportation to medical appointments?: No Do you have trouble paying your heating and electricity bill?: No Do you have trouble taking care of your child, family member or friend?: No Do you have trouble with day-to-day activities such as bathing, preparing meals, shopping, managing finances, etc.?: No Are you currently unemployed and looking for a job?: No Are you interested in more education?: No Please select the resources that you would like help with: None Currently or been in a relationship where the following occur: No concerns reported THRIVE Score: 0 AUDIT C Alcohol Use Questionnaire (AUDIT-C) 1. How often do you have a drink containing alcohol?: Never 3. How often do you have six or more drinks on one occasion?: Never Total Score: 0 ISABELLA-7 AMB Questionnaire ISABELLA-7 Date ISABELLA - 7 assessed: 01/27/24 Feeling nervous, anxious, or on edge: 0 = Not at all Not being able to stop or control worryin = Not at all Worrying too much about different things: 0 = Not at all Trouble relaxin = Not at all Being so restless that it is hard to sit still: 0 = Not at all Becoming easily annoyed or irritable: 0 = Not at all Feeling afraid as if something awful might happen: 0 = Not at all Total ISABELLA-7 score (0-4 normal; 5-9 mild; 10-14 moderate; 15-21 severe): 0 Source: Developed by Drs. Morro Mcqueen, Annmarie Fleming, Blayne Graf and colleagues, with an educational suyapa from [employer]. ISABELLA-7 Assessment Billing ISABELLA-7 Assessment Tool: ISABELLA-7 Assessment [id number] Physical exam (Primary Care) Vital Signs: Last Vital Signs Pulse 75 01/27/24 11:01 BP 118/66 01/27/24 11:01 Pulse Ox 98 01/27/24 11:01 Oxygen Delivery Method Room Air 01/27/24 11:01 BMI result Body Mass Index 30.2 Tobacco/Smoking Status: Tobacco use Status Tobacco use date assessed 01/27/24 01/27/24 11:02 Patient Tobacco Use Status Never used Tobacco 01/27/24 11:01 e-Cigarette/Vaping Use Never Used 01/27/24 11:01 Depression Screening Interpretation: Negative Thrive Assessment: Date of Thrive Assessment Date Thrive assessed 01/27/24 01/27/24 11:08 Currently or been in a relationship where the following occur: No concerns reported Const General: no acute distress HENMT Face and sinus: Yes normal facial exam Resp Effort & Inspection: normal respiratory effort Auscultation: clear to auscultation bilaterally Cardio Rhythm: regular rhythm Heart sounds: S1 normal heart sound present and S2 normal heart sound present GI Inspection: Yes normal to inspection Palpation (GI): Soft to palpation Percussion: Yes normal to percussion Auscultation: normal bowel sounds Assessment and Plan Assessment & Plan (1) Hypothyroidism: Comment: thyroid nodule R 0.5cm US 2016 no need for repeat Code(s): E03.9 - Hypothyroidism, unspecified Plan: Continue Levothyroxine (2) Hyperglycemia: Comment: A1C 5.8 09/16 Code(s): R73.9 - Hyperglycemia, unspecified Plan: A1c is 5.7, continue ADA diet increase physical activity weight loss discussed with the patient return in 6 months with a fasting labs before (3) Endometrial cancer: Comment: s/p hysterectomy, uterovaginal prolapse, cystocele, stress incont. 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 Panel Fast 6 Months E03.9 - Hypothyroidism, unspecified, R73.9 - Hyperglycemia, unspecified Lipid Panel 6 Months E03.9 - Hypothyroidism, unspecified, R73.9 - Hyperglycemia, unspecified Complete Blood Count Auto Diff 6 Months E03.9 - Hypothyroidism, unspecified, R73.9 - Hyperglycemia, unspecified Hemoglobin A1c 6 Months E03.9 - Hypothyroidism, unspecified, R73.9 - Hyperglycemia, unspecified Microalbumin, Random (w Creat) 6 Months E03.9 - Hypothyroidism, unspecified, R73.9 - Hyperglycemia, unspecified TSH reflex Free T4 6 Months E03.9 - Hypothyroidism, unspecified, R73.9 - Hyperglycemia, unspecified Coding Level of Care Code Est Pt Level 4 (45049) Diagnoses Hypothyroidism E03.9 Hyperglycemia R73.9 Endometrial cancer C54.1 GERD (gastroesophageal reflux disease) K21.9 Additional Codes ISABELLA-7 Assessment Billing - ISABELLA-7 Assessment Tool: ISABELLA-7 Assessment [id number] ([id number])
== END 2024-01-27 12:02 | disposition home or self-care (01) ==
PROVIDERS: PCP Internal Medicine; Visit Provider Internal Medicine
DX: E03.9 Hypothyroidism, unspecified (principal); R73.9 Hyperglycemia, unspecified; C54.1 Malignant neoplasm of endometrium; K21.9 Gastro-esophageal reflux disease without esophagitis
CPT/HCPCS: 99214

== ENCOUNTER 2024-08-11 08:45 | Outpatient (REF) | payer MEDICARE, BC, SELFPAY ==
--- OUTSIDE RECORDS SUMMARY | 2024-08-11 09:38 | XMS_ITS | Data Portability ---
Author Organization SYDNEY Duncan s, [address] Address [address] [place] [address] Care Team Providers Care Research Associate Policy Name Role Phone HARSHA JOHNSON Primary Care Provider Assessment No assessment recorded. Plan of Treatment Reminders Order Date Submit Date Provider Last Modified By Organization Details Last Modified Time Details Appointments None recorded. Lab None recorded. Referral None recorded. Procedures None recorded. Surgeries None recorded. Imaging None recorded. Medication Orders doxycycline hyclate 100 mg capsule 2022 023 MEDHAT [facility]acy #[id number], [address] [place], [address], 3 11:39:26 azelastine 137 mcg (0.1 %) nasal spray 2022 023 [email or web address] [facility] #[id number], [address] [place], [address], 4 08:56:50 Patient TargetsNo targets recorded. Patient Instructions Encounter Date Encounter Id Patient Instructions Last Modified By Organization Details Last Modified Time 05/09/2023 [id number] Acute Sinusitis: Care Instructions Not available 05/09/2023 11:39:23 you have been prescribed Antibiotics and a nasal spray as well as benzonatate to use as needed for cough Take antibiotic with food. Eat a yogurt daily or take a probiotic while taking the antibiotic to prevent upset stomach or diarrhea. Recommend humidified air rest, fluids tylenol as needed for pain or fever Please follow up as needed for worsening symptoms or no improvement. Not available 05/09/2023 11:38:20 Reason for Referral None Reported. Problems Name Problem SNOMED Code Status Onset Date Resolution Date Notes Provider Name and Address Organization Details Recorded Time Hypothyroidism 14364395 Active 2022 MARCELLE LUPICA null, PA - [facility] 3 11:06:02 Malignant neoplasm of uterus 729571048 Active 2022 MARCELLE LUPICA null, PA - [facility] 3 11:07:41 Problem Notes None recorded. Procedures Surgical History Date Name Laterality Status Provider Name and Address Organization Details Recorded Time cataract surgery completed MARCELLE LUPICA PA - [facility] 05/09/2023 11:06:29 Appendectomy completed MARCELLE LUPICA PA - [facility] 05/09/2023 11:07:13 tonsillectomy completed MARCELLE LUPICA PA - [facility] 05/09/2023 11:07:20 Imaging Results None recorded. Procedure Notes None recorded. Medical Equipment None Reported. Allergies Allergen ID Allergen Name Allergen Category Reaction Reaction Severity Criticality Documentation Date Start Date Code Code System Note Provider Name and Address Organization Details Recorded Time 773172 erythromy juma medicatio n vomiting Not available Not available 05/09/2023 4053 RxNorm MARCELLE LUPICA null, PA - [facility] 3 11:02:58 905644 tramadol medicatio n vomiting Not available Not available 05/09/2023 83024 RxNorm MARCELLE LUPICA null, PA - [facility] 3 11:03:13 730535 Zanaflex medicatio n vomiting Not available Not available 05/09/2023 67925 6 RxNorm MARCELLE LUPICA null, PA - [facility] 3 11:03:26 489849 Bextra medicatio n vomiting Not available Not available 05/09/2023 75343 0 RxNorm MARCELLE LUPICA null, PA - [facility] 3 11:03:38 610498 Avelox medicatio n diarrhea vomiting Not available Not available Not available 05/09/2023 83658 6 RxNorm MARCELLE LUPICA null, PA - [facility] 3 11:03:54 [id number] Celebrex medicatio n diarrhea Not available Not available 05/09/2023 08498 7 RxNorm MARCELLE HUTCHINS null, PA - [facility] 3 11:04:06 407118 Augmentin medicatio n diarrhea Not available Not available 05/09/2023 93999 2 RxNorm MARCELLE HUTCHINS null, PA - [facility] 3 11:04:17 066328 hydromorp real medicatio n hallucina tions Not available Not available 05/09/2023 3423 RxNorm MARCELLE HUTCHINS null, PA - [facility] 3 11:04:36 Medications Name Sig Start Date Stop Date Status Note LastModified by Organization Details LastModified Time latanoprost 0.005 % eye drops INSTILL 1 DROP INTO BOTH EYES NIGHTLY active Not Available Not Available No t Available doxycycline hyclate 100 mg capsule Take 1 capsule twice a day by oral route with meal(s) for 10 days. 2022 active Not Available Not Available Not Avai lable levothyroxi ne 75 mcg tablet TAKE 1 TABLET BY MOUTH EVERY MORNING active Not Available Not Available No t Available pantoprazol e 40 mg tablet,migue yed release TAKE 1 TABLET BY MOUTH EVERY DAY active Not Available Not Available No t Available polymyxin B sulfate 10,000 unit-trimet hoprim 1 mg/mL eye drops INSTILL 1 DROP INTO AFFECTED EYE(S) 3 TIMES A DAY FOR 7 DAYS 05/09 completed Not Available Not Available Not Available azelastine 137 mcg (0.1 %) nasal spray SPRAY 2 SPRAYS BY INTRANASA L ROUTE TWICE A DAY 2023 active Not Available Not Available Not Avai lable tobramycin 0.3 %-dexametha sone 0.1 % eye drops,suspe nsion INSTILL 1 DROP INTO AFFECTED EYE(S) EVERY 8 HOURS 05/09 completed Not Available Not Available Not Available neomycin 3.5 mg/g-polymy jo ann B 10,000 unit/g-dexa meth 0.1 % eye oint APPLE 1/4 STRIP TO AFFECTED EYELID THREE TIMES A DAY FOR ONE WEEK 05/09 completed Not Available Not Available Not Available Colace active Not Available Not Availa ble Not Available Vitals Date Recorded Body height Pain severity - 0-10 verbal numeric rating [Score] - Reported Respiratory rate Body temperature Oxygen saturation Oxygen saturation in Arterial blood by Pulse oximetry Heart rate Systolic blood pressure Diastolic blood pressure Systolic blood pressure Diastolic blood pressure Provider Name and Address Organization Details Last Updated DateTime 162.56 cm 0 18 /min 97.5 [degF] 98 % 98 % 67 /min 156 mm[Hg] 79 mm[Hg] 128 mm[Hg] 75 mm[Hg] MARCELLE HUTCHINS PA - [facility] 11:39:43 Social History Question Answer Notes LastModified by Organizat ion Details LastModified Time Tobacco Smoking Status Never Smoker MARCELLE parsons PA - [facility] 05/09/2023 11:07:02 What Is Your Level Of Alcohol Consumption? None [email or web address] Information not available 05/09/2023 Do You Use Any Illicit Or Recreational Drugs? No [email or web address] Information not available 05/09/2023 Have You Recently Traveled Abroad? No [email or web address] Information not available 05/09/2023 Do You Or Have You Ever Used Any Other Forms Of Tobacco Or Nicotine? No [email or web address] Information not available 05/09/2023 Sex: Unknown Functional Status None recorded. Mental Status None recorded. Family History Relationship Description Onset Age of this Age Resolved Age Notes LastModified by Organization Details LastModified Time Unspecified Relation Diabetes mellitus [email or web address] Not available 2022 11:06:45 Medical History No medical history recorded. Gynecological History Statement/Question Response Date of LMP Obstetrics History GPAL:G 0 P 0 0 0 0 Past Encounters Encounter ID Performer Location Encounter Start Date Encounter Closed Date Diagnosis/Indication Diagnosis SNOMED-CT Code Diagnosis ICD10 Code Diagnosis [place] [id number] [place] [address] [place] [address] 05/09/2023 10:09:18 05/09/2023 11:40:11 Sinusitis 94298006 J32.9 Given Hx and Sx and PE findings will Rx Antibiotic s and nasal spraybenzo natate for cough Take antibiotic with food. Eat a yogurt daily or take a probiotic while taking the antibiotic . Recommend humidified airrest, fluidstyle nol/ibu prn Patient advised to follow up as needed for worsening symptoms or no improvemen t. Discussed concerning red flags with patient and reasons to follow up in the Emergency Department urgently. Health Concerns Section Related Observation LastModified by Organization Detai ls LastModified Time None Recorded Concern Status LastModified by Organization Details LastModified Time None Recorded Advance Directives Directive None Recorded Payers Encounter Date Sequence Insurance Name Policy Number Policy Pal Covered Member ID Pal Member ID Guarantor Name 05/09/2023 1 [place] [employer] Lester Pelaez [id number] Erin Pelaez Notes Date Note Type Note Provider Name and Address Organization Details Recorded Time 05/09/2023 text/html CongestionReport ed bypatient.Notes:77 yo female c/o sinus & chest congestion, yellow phlegm x1.5 weeksHome covid test negative nonsmokerno h/o asthma No feverNo chillsNo nauseaNo vomiting+ coughNo wheezeNo difficulty breathing or respiratory distressNo CP+ congestion+ sinus painNo ear painNo sore throatNo Abdominal painNo diarrheaNo myalgiaNo fatigueNo rashNo HANo dizzinessNo recent travelNo known sick contacts Steffen Ovalle, DO [address] [place], [address], PA - [facility] 05/09/2023 11:40:25 OBGyn Episode No OBEpisode recorded.
[2024-08-11 10:23] LABS: MANUAL DIFF FLAG NO
[2024-08-11 10:39] LABS: Estimated Average Glucose 117 mg/dL; Hemoglobin A1C 151.8669 umol/L; Hemoglobin A1c % 5.7 % (<6.0); Total Hemoglobin (HGBA1C) 3928.4154 umol/L
[2024-08-11 10:41] LABS: Basophils Percent Auto 0.6 % (0-2); Eosinophils Absolute Auto 0.1 X10*3/uL (0.0-0.4); Eosinophils Percent Auto 1.2 % (0-4); Hematocrit 44.7 % (37.0-47.0); Hemoglobin 15.2 g/dl (12.0-16.0); Imm Gran Abs Auto 0.03 X10*3/uL (0.00-0.03); Imm Gran Pct Auto 0.4 % (0.0-0.4); Lymphocytes Absolute Auto 2.1 X10*3/uL (1.2-4.9); Lymphocytes Percent Auto 28.4 % (20-40); Mean Corpuscular Hemoglobin 30.3 pg (27.0-33.0); Mean Corpuscular Volume 89.2 fL (80.0-98.0); Mean Platelet Volume 11.4 fL (9.4-12.3); Monocytes Absolute Auto 0.6 X10*3/uL (0.1-1.2); Monocytes Percent Auto 8.7 % (2-11); Neutrophils Absolute Auto 4.4 x10*3/uL (2.0-8.3); Neutrophils Percent Auto 60.7 % (45-73); Platelet Count 244 X10*3/uL (160-400); Red Blood Count 5.01 X10*6/uL (4.20-5.50); Red Cell Distribution Width 12.9 % (11.0-16.0); White Blood Count 7.3 X10*3/uL (4.8-10.8)
[2024-08-11 10:57] LABS: Alanine Aminotransferase 18 U/L (0-31); Albumin Level 4.2 g/dL (3.5-5.0); Alkaline Phosphatase 73 U/L (39-117); Anion Gap 10 (12-20); Aspartate Amino Transferase 23 U/L (5-31); Bilirubin Total 0.3 mg/dL (0.0-1.0); Blood Urea Nitrogen 13 mg/dL (9-16); Calcium 9.2 mg/dL (8.4-10.2); Carbon Dioxide 26 mmol/L (22-29); Chloride 107 mmol/L (96-108); Cholesterol 187 mg/dL (<200); Estimated Glomerular Filt Rate > 60; Glucose Fasting 99 mg/dL (60-99); HDL Cholesterol 56 mg/dL (>40); LDL Cholesterol Calculated 101 mg/dL (<100); Potassium 4.1 mmol/L (3.3-5.1); Sodium 139 mmol/L (135-145); Total Protein 7.4 g/dL (6.5-8.0); Triglycerides 152 mg/dL (<150)
[2024-08-11 11:13] LABS: TSH reflex Free T4 1.61 uIU/mL (0.32-4.0)
[2024-08-11 14:22] LABS: Creatinine Urine 58.49 mg/dL; Microalbum/Creatinine Ratio Ur 32.4 ug/mg cr (<30)
== END 2024-08-11 08:46 | disposition home or self-care (01) ==
LOC: HO.HMGCLDS 08:45
PROVIDERS: PCP Internal Medicine; Visit Provider Internal Medicine
DX: R73.9 Hyperglycemia, unspecified (principal); E03.9 Hypothyroidism, unspecified
CPT/HCPCS: 36415; 80053; 80061; 82043; 82570; 83036; 84443; 85025

== ENCOUNTER 2024-08-18 10:56 | Outpatient (REF) | payer MEDICARE, BC, SELFPAY ==
--- NOTE | ~2024-08-18 | XR_ITS ---
EXAMINATION: XR CHEST CLINICAL INFORMATION: R05.9 - Cough, unspecified COMPARISON: None available. TECHNIQUE: Frontal view of the chest was obtained. FINDINGS: Hyperinflated lungs. Bilateral apical lung scarring. No consolidation, pleural effusion or pneumothorax. Cardiomediastinal silhouette size is normal. Osseous structures are intact. XR/XR chest 1V IMPRESSION: No acute airspace disease. Electronically signed by: Scout Culp MD 08/18/2024 02:50 PM EDT
== END 2024-08-18 10:57 | disposition home or self-care (01) ==
LOC: HO.HMGCX 10:56
PROVIDERS: PCP Internal Medicine; Visit Provider Internal Medicine
DX: Z00.00 Encounter for general adult medical examination without abnormal findings (principal); E03.9 Hypothyroidism, unspecified; R73.9 Hyperglycemia, unspecified; R05.9 Cough, unspecified; C54.1 Malignant neoplasm of endometrium
CPT/HCPCS: 71045; 96127; 99397

== ENCOUNTER 2024-08-18 10:56 | Outpatient (AMB) | payer MEDICARE, BC, SELFPAY ==
--- NOTE | 2024-08-18 11:22 | MHC.PC.OV ---
Vital Signs 08/18/24 11:23 Height 5 ft 4 in Weight 169 lb BMI 29.0 BP 120/78 Blood Pressure Location Lt brachial Position Sitting Respiration 18 Pulse 62 Pulse Source Pulse Oximeter Temp 98.1 F Temp Source Oral Pulse Oximetry (%) 98 Oxygen Delivery Method Room Air Intake Visit Reasons: Annual PE- due for Cologuard re-screen Intake Note: Pt is here today for PE. Allergies meperidine [Meperidine] Allergy (Intermediate, Verified 08/18/24 11:26) Severe Nausea and Vomiting tramadol [Tramadol] Allergy (Mild, Verified 08/18/24 11:26) Nausea and Vomiting, GI Upset erythromycin base Allergy (Unknown, Verified 08/18/24 11:26) Gastrointestinal Upset hydromorphone Allergy (Unknown, Verified 08/18/24 11:26) Hallucinations moxifloxacin [From Avelox] Allergy (Unknown, Verified 08/18/24 11:26) Diarrhea, Nausea and Vomiting, GI Upset amoxicillin [From Augmentin] Adverse Reaction (Unknown, Verified 08/18/24 11:26) Gastrointestinal Upset celecoxib [From Celebrex] Adverse Reaction (Unknown, Verified 08/18/24 11:26) Gastrointestinal Upset, nausea and vomiting clavulanic acid [From Augmentin] Adverse Reaction (Unknown, Verified 08/18/24 11:26) Gastrointestinal Upset tizanidine [From Zanaflex] Adverse Reaction (Unknown, Verified 08/18/24 11:26) Gastrointestinal Upset, Vomiting, Nausea and Vomiting valdecoxib [From Bextra] Adverse Reaction (Unknown, Verified 08/18/24 11:26) Gastrointestinal Upset, Nausea and vomiting Medication List - Last Reconciled 08/18/24 by Angela Rivera MD latanoprost 0.005% 1 drp ophthalmic (eye) BEDTIME levothyroxine 75 mcg PO QAM pantoprazole 40 mg PO DAILY Tobacco use date assessed: 08/18/24 Fall risk assessment: No Falls in past year Last assessed Fall Risk: 08/18/24 Dental Screening Dental Screen Date: 08/18/24 Did you have a dental visit in the last 12 months?: Yes Did you have a dental problem in the last 6 months where you did not have access to dental care?: No Was dental information given to patient?: Patient has dentist HPI Annual PE- due for Cologuard re-screen HPI Details Pt presents for PE. [facility] Medical History (Updated 08/18/24 @ 12:24 by Angela Rivera MD) Lower back pain Annual physical exam Osteoarthritis Osteopenia Bilateral renal cysts Endometrial cancer Glaucoma GERD (gastroesophageal reflux disease) Hypothyroidism Dysuria History of uterine cancer Surgical History H/O colonoscopy Hx of appendectomy History of tonsillectomy History of hysterectomy Family History Father No problems noted. Mother Diabetes Social History Housing: House Alcohol intake: never Patient Tobacco Use Status: Never used Tobacco e-Cigarette/Vaping Use: Never Used Second Hand Smoke Exposure: No service: No Current occupational status: retired Current occupation: right handed Cognitive needs: No Hearing needs: No Vision needs: No Questionnaire PHQ-9 Over the last 2 weeks, how often have you been bothered by any of the following problems? 1. Little interest or pleasure in doing things: not at all 2. Feeling down, depressed, or hopeless: not at all 3. Trouble falling or staying asleep, or sleeping too much: not at all 4. Feeling tired or having little energy: not at all 5. Poor appetite or overeating: not at all 6. Feeling bad about yourself - or that you are a failure or have let yourself or your family down: not at all 7. Trouble concentrating on things, such as reading the newspaper or watching television: not at all 8. Moving or speaking so slowly that other people could have noticed. Or the opposite - being so fidgety or restless that you have been moving around a lot more than usual: not at all 9. Thoughts that you would be better off or of hurting yourself in some way: not at all Total score: 0 Depression Screening Interpretation: Negative Depression Screening Done: Yes 55949 - PHQ-9 Billing: Yes Source: Developed by Drs. Morro Mcqueen, Annmarie Fleming, Blayne Graf and colleagues, with an educational suyapa from [employer]. Thrive Questionnaire Date Thrive assessed: 08/18/24 I am a: Patient What is your living situation today?: I have a steady place to live Within the past 12 months, did the food you bought not last and you didn't have the money to get more?: Never true Within the past 12 months, did you worry whether your food would run out before you got money to buy more?: Never true Do you have trouble paying for medicines?: No Do you have trouble getting transportation to medical appointments?: No Do you have trouble paying your heating and electricity bill?: No Do you have trouble taking care of your child, family member or friend?: No Do you have trouble with day-to-day activities such as bathing, preparing meals, shopping, managing finances, etc.?: No Are you currently unemployed and looking for a job?: No Are you interested in more education?: No Please select the resources that you would like help with: None THRIVE Score: 0 AUDIT C Alcohol Use Questionnaire (AUDIT-C) 1. How often do you have a drink containing alcohol?: Never 3. How often do you have six or more drinks on one occasion?: Never Total Score: 0 ISABELLA-7 AMB Questionnaire ISABELLA-7 Date ISABELLA - 7 assessed: 08/18/24 Feeling nervous, anxious, or on edge: 0 = Not at all Not being able to stop or control worryin = Not at all Worrying too much about different things: 0 = Not at all Trouble relaxin = Not at all Being so restless that it is hard to sit still: 0 = Not at all Becoming easily annoyed or irritable: 0 = Not at all Feeling afraid as if something awful might happen: 0 = Not at all Total ISABELLA-7 score (0-4 normal; 5-9 mild; 10-14 moderate; 15-21 severe): 0 Source: Developed by Drs. Morro Mcqueen, Annmarie Fleming, Blayne Graf and colleagues, with an educational suyapa from [employer]. ISABELLA-7 Assessment Billing ISABELLA-7 Assessment Tool: ISABELLA-7 Assessment 14446 Review of Systems Const All systems reviewed & are unremarkable except as noted in HPI and below Reports no additional complaints Eyes Reports no additional complaints ENT Reports no additional complaints Card Reports no additional complaints Resp Reports no additional complaints GI Reports no additional complaints Reports no additional complaints Musc Reports no additional complaints Physical exam (Primary Care) Vital Signs: Last Vital Signs Temp 98.1 F 08/18/24 11:23 Pulse 62 08/18/24 11:23 Resp 18 08/18/24 11:23 BP 120/78 08/18/24 11:23 Pulse Ox 98 08/18/24 11:23 Oxygen Delivery Method Room Air 08/18/24 11:23 BMI result Body Mass Index 29.0 Tobacco/Smoking Status: Tobacco use Status Tobacco use date assessed 08/18/24 08/18/24 11:27 Patient Tobacco Use Status Never used Tobacco 08/18/24 11:24 e-Cigarette/Vaping Use Never Used 08/18/24 11:24 PHQ-9: PHQ-9 Score PHQ-9: Total score 0 08/18/24 11:39 Depression Screening Interpretation: Negative Thrive Assessment: Date of Thrive Assessment Date Thrive assessed 08/18/24 08/18/24 11:24 Const General: no acute distress HENMT Head: Yes normal to inspection Ears: hearing grossly normal bilaterally Face and sinus: Yes normal facial exam Mouth: Normal oral and palatal mucosa present Eyes General: appearance normal, both eyes and all related structures Neck Neck: Yes supple Resp Effort & Inspection: normal respiratory effort Auscultation: clear to auscultation bilaterally Cardio Rhythm: regular rhythm Heart sounds: S1 normal heart sound present and S2 normal heart sound present GI Inspection: Yes normal to inspection Palpation (GI): Soft to palpation Coding Level of Care Code Est Pt Prev Care >65y(20904) Diagnoses Hypothyroidism E03.9 Annual physical exam Z00.00 Hyperglycemia R73.9 Endometrial cancer C54.1 Additional Codes ISABELLA-7 Assessment Billing - ISABELLA-7 Assessment Tool: ISABELLA-7 Assessment 88449 ([id number]) PHQ-9 - 96710 - PHQ-9 Billing: Yes ([id number]) Assessment & Plan Assessment & Plan (1) Hypothyroidism: Comment: thyroid nodule R 0.5cm US 2016 no need for repeat Code(s): E03.9 - Hypothyroidism, unspecified Category: Medical Plan: Continue levothyroxine (2) Annual physical exam: Code(s): Z00.00 - Encounter for general adult medical examination without abnormal findings Category: Medical Plan: Well-balanced diet regular physical activity discussed with the patient. She does not need a colon cancer screening or mammogram due to her age (3) Hyperglycemia: Comment: A1C 5.8 09/16 Code(s): R73.9 - Hyperglycemia, unspecified Category: Medical Plan: ADA diet discussed with the patient monitor A1c (4) Endometrial cancer: Comment: s/p hysterectomy, uterovaginal prolapse, cystocele, stress incont. Code(s): C54.1 - Malignant neoplasm of endometrium Category: Medical Plan: Follow-up PRN with process manufacturing engineer Orders: Orders XR chest 1V Today R05.9 - Cough, unspecified Comprehensive [place]. Panel Fast 1 Year E03.9 - Hypothyroidism, unspecified, R73.9 - Hyperglycemia, unspecified, Z00.00 - Encounter for general adult medical examination without abnormal findings TSH reflex Free T4 1 Year E03.9 - Hypothyroidism, unspecified, R73.9 - Hyperglycemia, unspecified, Z00.00 - Encounter for general adult medical examination without abnormal findings Vitamin D 25-OH Total 1 Year E55.9 - Vitamin D deficiency, unspecified Complete Blood Count Auto Diff 1 Year E03.9 - Hypothyroidism, unspecified, R73.9 - Hyperglycemia, unspecified, Z00.00 - Encounter for general adult medical examination without abnormal findings Vitamin B12 and Folate 1 Year E03.9 - Hypothyroidism, unspecified, R73.9 - Hyperglycemia, unspecified, Z00.00 - Encounter for general adult medical examination without abnormal findings Hemoglobin A1c 1 Year R73.9 - Hyperglycemia, unspecified
[2024-08-18 11:23] VITALS: BP 120/78; PULSE 62; RESP 18; TEMP 36.7; O2SAT 98; BMI 29.0
== END 2024-08-18 12:33 | disposition home or self-care (01) ==
PROVIDERS: PCP Internal Medicine; Visit Provider Internal Medicine
DX: Z00.00 Encounter for general adult medical examination without abnormal findings (principal); C54.1 Malignant neoplasm of endometrium; E03.9 Hypothyroidism, unspecified; R73.9 Hyperglycemia, unspecified

== ENCOUNTER → 2024-08-18 12:28 | Outpatient (BNV) | payer MEDICARE, BC, SELFPAY | PROVIDERS: PCP Internal Medicine; Visit Provider Radiology Diagnostic Radiology | DX: R05.9 Cough, unspecified (principal) | CPT/HCPCS: 71045 ==

== ENCOUNTER 2024-08-26 09:05 | Outpatient (AMB) | payer BC, SELFPAY ==
[2024-08-26 09:11] VITALS: BMI 29.0
--- NOTE | 2024-08-26 09:11 | MHC.OFFVIS ---
Vital Signs 08/26/24 09:11 Height 5 ft 4 in Weight 169 lb BMI 29.0 Intake Visit Reasons: Inj-LT knee injection-last inj 10/31/23 Intake Note: Erin is a 78 year old female who presents today for a left knee injection, last injection done 10/31/23. Patient reports that the left knee injection was helpful and she would like to repeat injection today. She also reports lower back pain and would like a referral to a provider who treats back pain. Allergies meperidine [Meperidine] Allergy (Intermediate, Verified 08/26/24 09:14) Severe Nausea and Vomiting tramadol [Tramadol] Allergy (Mild, Verified 08/26/24 09:14) Nausea and Vomiting, GI Upset erythromycin base Allergy (Unknown, Verified 08/26/24 09:14) Gastrointestinal Upset hydromorphone Allergy (Unknown, Verified 08/26/24 09:14) Hallucinations moxifloxacin [From Avelox] Allergy (Unknown, Verified 08/26/24 09:14) Diarrhea, Nausea and Vomiting, GI Upset amoxicillin [From Augmentin] Adverse Reaction (Unknown, Verified 08/26/24 09:14) Gastrointestinal Upset celecoxib [From Celebrex] Adverse Reaction (Unknown, Verified 08/26/24 09:14) Gastrointestinal Upset, nausea and vomiting clavulanic acid [From Augmentin] Adverse Reaction (Unknown, Verified 08/26/24 09:14) Gastrointestinal Upset tizanidine [From Zanaflex] Adverse Reaction (Unknown, Verified 08/26/24 09:14) Gastrointestinal Upset, Vomiting, Nausea and Vomiting valdecoxib [From Bextra] Adverse Reaction (Unknown, Verified 08/26/24 09:14) Gastrointestinal Upset, Nausea and vomiting HPI HPI Inj-LT knee injection-last inj 10/31/23: Details: Erin is a 78 year old female who presents today for a left knee injection, last injection done 10/31/23. Patient reports that the left knee injection was helpful and she would like to repeat injection today. She also reports lower back pain and would like a referral to a provider who treats back pain. [facility] Medical History Lower back pain Annual physical exam Osteoarthritis Osteopenia Bilateral renal cysts Endometrial cancer Glaucoma GERD (gastroesophageal reflux disease) Hypothyroidism Dysuria History of uterine cancer Surgical History H/O colonoscopy Hx of appendectomy History of tonsillectomy History of hysterectomy Family History Father No problems noted. Mother Diabetes Social History Housing: House Alcohol intake: never Patient Tobacco Use Status: Never used Tobacco e-Cigarette/Vaping Use: Never Used Second Hand Smoke Exposure: No service: No Current occupational status: retired Current occupation: right handed Cognitive needs: No Hearing needs: No Vision needs: No Physical Exam Vital Signs: BMI result Body Mass Index 29.0 Const General: no acute distress and alert Orientation/consciousness: patient oriented x3 Neuro General: patient oriented x3 Extrem Other: Left Knee: Skin C/D/I TTP medial compartment Psych Appearance: grossly normal Affect: normal affect Attitude: cooperative Office Procedures Joint Inj/Aspir; Non-Pain Clin Joint Injection/Drain Details: Injected 1 mL of Decadron and 3 mL 1% lidocaine and 3 mL of 0.25% Marcaine. Site was prepped using aseptic technique. Patient tolerated the procedure well. Shoulders, Hips, Knees, Knee Large Joint Injection : Left Knee Coding Procedure code (CPT) selection complete Assessment & Plan Assessment & Plan (1) Osteoarthritis of left knee: Code(s): M17.12 - Unilateral primary osteoarthritis, left knee Category: Medical Plan: Injected left knee. May follow up 3-4 mo prn (2) Lumbar back pain: Code(s): M54.50 - Low back pain, unspecified Category: Medical Plan: Referred to Pysiatry for LBP. Coding Level of Care Code Est Pt Level 3 (25945) Diagnoses Osteoarthritis of left knee M17.12 Lumbar back pain M54.50 CPT Codes Shoulders, Hips, Knees, - Knee Large Joint Injection : Left Knee ([id number])
--- OUTSIDE RECORDS SUMMARY | 2024-08-26 09:23 | XMS_ITS | Data Portability ---
Author Organization [facility] Duncan s, [address] Address [address] [place] [address] Care Team Providers Care Hunting Sales Leader Name Role Phone HARSHA JOHNSON Primary Care Provider Assessment No assessment recorded. Plan of Treatment Reminders Order Date Submit Date Provider Last Modified By Organization Details Last Modified Time Details Appointments None recorded. Lab None recorded. Referral None recorded. Procedures None recorded. Surgeries None recorded. Imaging None recorded. Medication Orders doxycycline hyclate 100 mg capsule 2022 023 [facility] #1230, [address] [place], [address], 3 11:39:26 azelastine 137 mcg (0.1 %) nasal spray 2022 023 [email or web address] [facility]1230, [address] [place], [address], 4 08:56:50 Patient TargetsNo targets recorded. Patient Instructions Encounter Date Encounter Id Patient Instructions Last Modified By Organization Details Last Modified Time 05/09/2023 [id number] Acute Sinusitis: Care Instructions Not available 05/09/2023 [...] and Address Organization Details Recorded Time Hypothyroidism 30223983 Active 2022 MARCELLE LUPICA null, [place] - [facility] 3 11:06:02 Malignant neoplasm of uterus 638741600 Active 2022 MARCELLE LUPICA null, PA - [...] Name and Address Organization Details Recorded Time 434211 erythromy juma medicatio n vomiting Not available Not available 05/09/2023 4053 RxNorm MARCELLE LUPICA null, PA - [facility] 3 11:02:58 [id number] tramadol medicatio n vomiting Not available Not available 05/09/2023 51272 RxNorm MARCELLE LUPICA null, PA - [facility] 3 11:03:13 [id number] Zanaflex medicatio n vomiting Not available Not available 05/09/2023 80353 6 RxNorm MARCELLE LUPICA null, PA - [facility] 3 11:03:26 [id number] Bextra medicatio n vomiting Not available Not available 05/09/2023 61676 0 RxNorm MARCELLE LUPICA null, PA - [facility] 3 11:03:38 [id number] Avelox medicatio n diarrhea vomiting Not available Not available Not available 05/09/2023 43974 6 RxNorm MARCELLE LUPICA null, PA - [facility] 3 11:03:54 [id number] Celebrex medicatio n diarrhea Not available Not available 05/09/2023 55485 7 RxNorm MARCELLE HUTCHINS null, PA - [facility] 3 11:04:06 [id number] Augmentin medicatio n diarrhea Not available Not available 05/09/2023 51796 2 RxNorm MARCELLE HUTCHINS null, PA - [facility] 3 11:04:17 464233 hydromorp real medicatio n hallucina tions Not [...] Is Your Level Of Alcohol Consumption? None [email or web address] Information not available 05/09/2023 Do You Use Any Illicit Or Recreational Drugs? No [email or web address] Information not available 05/09/2023 Have You Recently Traveled Abroad? No Information not available 05/09/2023 Do You Or Have You Ever Used Any Other Forms Of Tobacco Or Nicotine? No Information not available 05/09/2023 Sex: Unknown Functional Status None recorded. Mental Status None recorded. Family History Relationship Description Onset Age of this Age Resolved Age Notes LastModified by Organization Details LastModified Time Unspecified Relation Diabetes mellitus [email or web address] Not available 2022 11:06:45 Medical History No medical history recorded. Gynecological History Statement/Question Response Date of LMP Obstetrics History GPAL:G 0 P 0 0 0 0 Past Encounters Encounter ID Performer Location Encounter Start Date Encounter Closed Date Diagnosis/Indication Diagnosis SNOMED-CT Code Diagnosis ICD10 Code Diagnosis [place] [id number] [place] [address] [place] [address] 05/09/2023 10:09:18 05/09/2023 11:40:11 Sinusitis [id number] J32.9 Given Hx and Sx and PE [...] 1 [place] [employer] Lester Pelaez [id number] Erin Pelaez Notes Date Note Type Note [...] Ovalle, DO [address] [place], [address], [place] - [facility] 05/09/2023 11:40:25 OBGyn Episode No OBEpisode recorded.
== END 2024-08-26 09:27 | disposition home or self-care (01) ==
LOC: HO.HOS 09:06
PROVIDERS: PCP Internal Medicine; Visit Provider Orthopaedic Surgery
DX: M17.12 Unilateral primary osteoarthritis, left knee (principal); M54.50 Low back pain, unspecified
CPT/HCPCS: 20610; 99213

== ENCOUNTER → 2024-08-26 09:05 | Outpatient (BNVA) | payer BC, SELFPAY | PROVIDERS: PCP Internal Medicine; Visit Provider Orthopaedic Surgery | DX: M17.12 Unilateral primary osteoarthritis, left knee (principal); M54.50 Low back pain, unspecified | CPT/HCPCS: 20610; J0665; J1100; J2003 ==

== ENCOUNTER 2024-12-09 11:18 | Outpatient (AMB) | payer BC, SELFPAY ==
--- NOTE | 2024-12-09 11:24 | A.OFFVIS_ITS ---
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 Patient was referred by Dr. Hamm on 08/26/24. Patient reports a catching sensation with movements such as bending forward or turning motions that has been present for months. She does not complain of pain. Denies injury. No previous treatments. Scorer Single Required: No Allergies meperidine (Meperidine) Allergy (Intermediate, Verified 12/09/24 11:52) Severe Nausea and Vomiting tramadol (Tramadol) Allergy (Mild, Verified 12/09/24 11:52) Nausea and Vomiting, GI Upset erythromycin base Allergy (Unknown, Verified 12/09/24 11:52) Gastrointestinal Upset hydromorphone Allergy (Unknown, Verified 12/09/24 11:52) Hallucinations moxifloxacin (From Avelox) Allergy (Unknown, Verified 12/09/24 11:52) Diarrhea, Nausea and Vomiting, GI Upset amoxicillin (From Augmentin) Adverse Reaction (Unknown, Verified 12/09/24 11:52) Gastrointestinal Upset celecoxib (From Celebrex) Adverse Reaction (Unknown, Verified 12/09/24 11:52) Gastrointestinal Upset, nausea and vomiting clavulanic acid (From Augmentin) Adverse Reaction (Unknown, Verified 12/09/24 11:52) Gastrointestinal Upset tizanidine (From Zanaflex) Adverse Reaction (Unknown, Verified 12/09/24 11:52) Gastrointestinal Upset, Vomiting, Nausea and Vomiting valdecoxib (From Bextra) Adverse Reaction (Unknown, Verified 12/09/24 11:52) Gastrointestinal Upset, Nausea and vomiting HPI Comments Details: Points to lower back, alternates right and left. On/off for past few months. No inciting injuries. After she leans forward, she feels the pain when straigthening. Does not radiate. No numbness or weakness. No groih pain or hip pain. No bladder/bowel changes. No PT yet. [facility] Medical History Lower back pain Annual physical exam Osteoarthritis Osteopenia Bilateral renal cysts Endometrial cancer Glaucoma GERD (gastroesophageal reflux disease) Hypothyroidism Dysuria History of uterine cancer Surgical History H/O colonoscopy Hx of appendectomy History of tonsillectomy History of hysterectomy Family History Father No problems noted. Mother Diabetes Social History Housing: House Alcohol intake: never Patient Tobacco Use Status: Never used Tobacco e-Cigarette/Vaping Use: Never Used Second Hand Smoke Exposure: No service: No Current occupational status: retired Current occupation: right handed Cognitive needs: No Hearing needs: No Vision needs: No Review of Systems Const All systems reviewed & are unremarkable except as noted in HPI and below Physical Exam Vital Signs: BMI result Body Mass Index 29.0 Constitutional: Patient appears to be in no acute distress, well nourished and well developed. Patient was appropriately conversant and oriented. Good historian. MSK: No specific abnormalities found on inspection of the spine and all extremities. No pain with palpation over the lumbar area. Tenderness over bilateral SI joints. Lumbar ROM was full. Bilateral hip, knee and ankle ROM WNL. No ligamentous laxity or crepitance. No increased effusion. Straight-leg raising test negative. FABERE test sedative lower back pain. Gillet test showed some stiffness over left side SI. Strength is 5/5 in all muscle groups tested. No increased tone noted. Neurological: Neurologic examination of the upper and lower extremities was nonfocal with intact sensation, muscle stretch reflexes and without focal motor deficits . Babinski was down going bilaterally. Clonus was negative. Gait is non-antalgic without loss of balance. Results Reviewed Results Reviewed: I reviewed records from the following: Ortho Assessment & Plan Assessment & Plan (1) Sacroiliac joint dysfunction of both sides: Code(s): M53.3 - Sacrococcygeal disorders, not elsewhere classified Category: Medical Plan Suspect pain is coming from SI joint dysfunction. No signs of lumbar radiculopathy or myelopathy on exam. As she is not complaining of or showing signs of lumbar pain, do not see any indication for lumbar imaging at this time. Suspect if we do get an x-ray, it would show spondylosis or facet arthritis, which is not her current issue. As for SI joint dysfunction, we agreed on sending her to physical therapy. Assessment and plan discussed with patient, and patient was agreeable. All questions were answered thoroughly. Ida Souza MD, CINDY Board Certified, [place] Board of Physical Medicine and Rehabilitation (ABPMR) Board Certified, [place] Board of Electrodiagnostic Medicine (ABEM) Orders: Orders PT Evaluation and Treatment Today M53.3 - Sacrococcygeal disorders, not elsewhere classified Coding Level of Care Code New Pt Level 3 (26595) Diagnoses Sacroiliac joint dysfunction of both sides M53.3
[2024-12-09 11:50] VITALS: BMI 29.0
--- OUTSIDE RECORDS SUMMARY | 2024-12-09 12:08 | XMS_ITS | Patient Health Record ---
Author Organization [facility] Address [address] [place] [address] Care Team Providers Care Pick Up Worker Name Role Phone Fadi Melara Jr Unavailable [phone] Reason For Referral No Information Plan Of Treatment No Information
--- OUTSIDE RECORDS SUMMARY | 2024-12-09 12:08 | XMS_ITS | Data Portability ---
Author Organization SYDNEY Duncan s, [address] Address [address] [place] [address] Care Team Providers Care Director Of Distance Learning Name Role Phone HARSHA JOHNSON Primary Care Provider Assessment No assessment recorded. Plan of Treatment Reminders Order Date Submit Date Provider Last Modified By Organization Details Last Modified Time Details Appointments None recorded. Lab None recorded. Referral None recorded. Procedures None recorded. Surgeries None recorded. Imaging None recorded. Medication Orders doxycycline hyclate 100 mg capsule 2022 023 MED[facility]acy #1230, [address] [place], [address], 3 11:39:26 azelastine 137 mcg (0.1 %) nasal spray 2022 023 [facility] #1230, [address] [place], [address], 4 08:56:50 Patient TargetsNo targets recorded. Patient Instructions Encounter Date Encounter Id Patient Instructions Last Modified By Organization Details Last Modified Time 05/09/2023 [id number] Acute Sinusitis: Care Instructions Not available 05/09/2023 [...] and Address Organization Details Recorded Time Hypothyroidism 81994727 Active 2022 MARCELLE LUPICA null, PA - [facility] 3 11:06:02 Malignant neoplasm of uterus 202615283 Active 2022 MARCELLE LUPICA null, PA - [...] Name and Address Organization Details Recorded Time 365042 erythromy juma medicatio n vomiting Not available Not available 05/09/2023 4053 RxNorm MARCELLE LUPICA null, PA - [facility] 3 11:02:58 [id number] tramadol medicatio n vomiting Not available Not available 05/09/2023 37808 RxNorm MARCELLE LUPICA null, PA - [facility] 3 11:03:13 068781 Zanaflex medicatio n vomiting Not available Not available 05/09/2023 39726 6 RxNorm MARCELLE LUPICA null, PA - [facility] 3 11:03:26 039579 Bextra medicatio n vomiting Not available Not available 05/09/2023 09273 0 RxNorm MARCELLE LUPICA null, PA - [facility] 3 11:03:38 900484 Avelox medicatio n diarrhea vomiting Not available Not available Not available 05/09/2023 96309 6 RxNorm MARCELLE LUPICA null, PA - [facility] 3 11:03:54 643672 Celebrex medicatio n diarrhea Not available Not available 05/09/2023 94436 7 RxNorm MARCELLE HUTCHINS null, PA - [facility] 3 11:04:06 993762 Augmentin medicatio n diarrhea Not available Not available 05/09/2023 29438 2 RxNorm MARCELLE HUTCHINS null, PA - [facility] 3 11:04:17 650581 hydromorp real medicatio n hallucina tions Not [...] Not Available Vitals Date Recorded Body height Respiratory rate Body temperature Oxygen saturation Oxygen saturation in Arterial blood by Pulse oximetry Heart rate Systolic And Diastolic Systolic And Diastolic Provider Name and Address Organization Details Last Updated DateTime 3 162.56 cm 18 /min 97.5 [degF] 98 % 98 % 67 /min 156/79 mm[Hg] 128/75 mm[Hg] MARCELLE HUTCHINS PA - [facility] 3 11:39:43 Social History Question Answer Notes LastModified by [facility] Medical Details LastModified Time Tobacco Smoking Status Never Smoker MARCELLE HUTCHINS issa, PA - [facility] 05/09/2023 11:07:02 Have You Recently Traveled Abroad? No [email or web address] Information not available 05/09/2023 Sex: Unknown Functional Status Question Answer Note LastModified by [facility] Medical Details LastModified Time Do you use any illicit or recreational drugs? No [email or web address] Information not available 05/09/2023 Do you or have you ever used any other forms of tobacco or nicotine? No [email or web address] Information not available 05/09/2023 What is your level of alcohol consumption? None [email or web address] Information not available 05/09/2023 Mental Status None recorded. Family History Relationship Description Onset Age of this Age Resolved Age Notes LastModified by Organization Details LastModified Time Unspecified Relation Diabetes mellitus Not available 2022 11:06:45 Medical History No medical history recorded. Gynecological History Statement/Question Response Date of LMP Obstetrics History GPAL:G 0 P 0 0 0 0 Past Encounters Encounter ID Performer Location Encounter Start Date Encounter Closed Date Diagnosis/Indication Diagnosis SNOMED-CT Code Diagnosis ICD10 Code Diagnosis Note [id number] [place] [address] [place] [address] 05/09/2023 10:09:18 05/09/2023 11:40:11 Sinusitis [id number] J32.9 Given Hx and Sx and PE [...] Recorded Advance Directives Directive None Recorded Payers Insurance Date Sequence Insurance Name Policy Number Policy Pal Covered Member ID Pal Member ID Guarantor Name 05/09/2023 1 [place] Lester Pelaez [id number] Erin Pelaez Notes Date Note Type Note [...] Ovalle, DO [address] [place], [address], [place] - [facility] 05/09/2023 11:40:25 OBGyn Episode No OBEpisode recorded.
== END 2024-12-09 12:04 | disposition home or self-care (01) ==
LOC: HO.HOS 11:19
PROVIDERS: PCP Internal Medicine; Visit Provider Physical Medicine & Rehabilitation
DX: M53.3 Sacrococcygeal disorders, not elsewhere classified (principal)
CPT/HCPCS: 99203

== ENCOUNTER 2025-02-07 10:00 | Outpatient (RCR) | payer MEDICARE, BC, SELFPAY ==
--- NOTE | 2025-01-04 10:39 | MHC.PT.EP ---
[facility] [place] Office [place] Office [place] Office [address] [phone] F: [phone] F: [phone] F: [phone] F: [phone] Physical Therapy Plan of Care Date of Evaluation: 01/04/25 Date of Surgery: n/a Diagnosis: SI joint dysfunction B Assessment: Patient is a 79 year old female presenting to PT with complaints of pain in her low back. Pt reports onset of pain began 5-6 months ago due to insidious onset. She presents today with impairments in lumbar ROM, hip strength, core strength. Pt's current occupation is retired, with baseline physical activities including ADLs, ambulating, stair negotiation. Pt expresses senior care goal of reducing pain, and is motivated to work towards this in PT. Clinical presentation today is most consistent with signs and sx associated with low back pain and pt will benefit from skilled PT 2 week x 4 weeks to address the following problems and impairments noted upon evaluation: lumbar ROM, hip strength, core strength. These problems limit the patient with the following functional activities: ADLs, ambulating, stair negotiation. The prescribed treatment plan of care is medically necessary. Co-morbidities of osteopenia, hx cancer were identified and taken into considerations of plan of care. Pt was educated on HEP, role of PT, prognosis, POC. Frequency and Duration: The patient will be seen 2 x week x 4 weeks Short Term Goals: Pt will demonstrate improved hip MMT strength by 1/3 grade in 2 weeks. Pt will demonstrate ability to perform PPT with good core control in 2 weeks. Blindstitch Lapel Padder Goals: Pt will demonstrate ability to complete all ADLs with with less frequency of the zap in 4 weeks for return to PLOF. Pt will demonstrate independence in HEP for self management of sx in 4 weeks. Treatment Plan: Modalities to reduce pain, spasms and effusion. Manual therapy to restore motion and function. Therapeutic exercise to improve strength and flexibility. Neuromuscular re-education for posture and balance. Therapeutic activities to return to functional activities of daily living. Electronically signed by: Melisa Nolasco, PT, DPT, ATC Please sign and return to therapist. Thank you for your referral.
--- NOTE | 2025-02-07 10:44 | MHC.PT.DC ---
[facility] [place] Office [place] Office [place] Office [address] [phone] F: [phone] F: [phone] F: [phone] F: [phone] Physical Therapy Discharge Report Diagnosis: SI joint dysfunction B Date of Surgery: n/a Date of Evaluation: 01/04/25 Date of Discharge: 02/07/25 Treatments to Date: 7 Cancellations to Date: 0 No Shows to Date: 0 Discharge Status: Achieved Goals Improved Function Independent with HEP Discharge Summary: 02/07/2025: She is no longer feeling pain and overall is happy with her progress. She has been compliant with her program as well. At this time max benefits of PT have been provided and skilled PT is no longer indicated. Pt is in agreement with d/c. Recommend continuing wit program for snf management of sx. Electronically signed by: Melisa Nolasco, PT, DPT, ATC Please sign and return to therapist. Thank you for your referral.
== END 2025-02-07 10:46 | disposition home or self-care (01) ==
LOC: HO.PTCHIC 10:00
PROVIDERS: PCP Internal Medicine; Visit Provider Physical Medicine & Rehabilitation
DX: M53.3 Sacrococcygeal disorders, not elsewhere classified (principal)
CPT/HCPCS: 97110; 97161

== ENCOUNTER 2025-02-17 10:51 | Outpatient (AMB) | payer MEDICARE, BC, SELFPAY ==
--- NOTE | 2025-02-17 11:29 | A.OFFVIS_ITS ---
Vital Signs 02/17/25 11:31 Height 5 ft 4 in Weight 170 lb BMI 29.2 Intake Visit Reasons: OV- Low back pain Intake Note: Erin is a 79 year old female who presents today as a follow up for lower back pain. At last visit we referred her to physical therapy. At today's visit she states that physical therapy went well and she states that she completed her appointments last week. She is seeing an improvement and that jolt of pain is now gone. Patient states no falls or injury's to report. Allergies meperidine (Meperidine) Allergy (Intermediate, Verified 02/17/25 11:32) Severe Nausea and Vomiting tramadol (Tramadol) Allergy (Mild, Verified 02/17/25 11:32) Nausea and Vomiting, GI Upset erythromycin base Allergy (Unknown, Verified 02/17/25 11:32) Gastrointestinal Upset hydromorphone Allergy (Unknown, Verified 02/17/25 11:32) Hallucinations moxifloxacin (From Avelox) Allergy (Unknown, Verified 02/17/25 11:32) Diarrhea, Nausea and Vomiting, GI Upset amoxicillin (From Augmentin) Adverse Reaction (Unknown, Verified 02/17/25 11:32) Gastrointestinal Upset celecoxib (From Celebrex) Adverse Reaction (Unknown, Verified 02/17/25 11:32) Gastrointestinal Upset, nausea and vomiting clavulanic acid (From Augmentin) Adverse Reaction (Unknown, Verified 02/17/25 11:32) Gastrointestinal Upset tizanidine (From Zanaflex) Adverse Reaction (Unknown, Verified 02/17/25 11:32) Gastrointestinal Upset, Vomiting, Nausea and Vomiting valdecoxib (From Bextra) Adverse Reaction (Unknown, Verified 02/17/25 11:32) Gastrointestinal Upset, Nausea and vomiting Medication List - Last Reconciled 02/17/25 by Ida Souza MD latanoprost 0.005% 1 drp ophthalmic (eye) BEDTIME levothyroxine 75 mcg PO QAM pantoprazole 40 mg PO DAILY HPI Comments Details: Points to lower back, alternates right and left. On/off for past few months. No inciting injuries. After she leans forward, she feels the pain when straigthening. Does not radiate. No numbness or weakness. No groih pain or hip pain. No bladder/bowel changes. Reviewed PT discharge summary. She did very well, without anymore pain. She tells me she is doing much better. On and off would get is saying on the right SI joint area. A course for a second and then gone. Does not radiate down the leg. No new weakness. [facility] Medical History Lower back pain Annual physical exam Osteoarthritis Osteopenia Bilateral renal cysts Endometrial cancer Glaucoma GERD (gastroesophageal reflux disease) Hypothyroidism Dysuria History of uterine cancer Surgical History H/O colonoscopy Hx of appendectomy History of tonsillectomy History of hysterectomy Family History Father No problems noted. Mother Diabetes Social History Housing: House Alcohol intake: never Patient Tobacco Use Status: Never used Tobacco e-Cigarette/Vaping Use: Never Used Second Hand Smoke Exposure: No service: No Current occupational status: retired Current occupation: right handed Cognitive needs: No Hearing needs: No Vision needs: No Physical Exam Vital Signs: BMI result Body Mass Index 29.2 Constitutional: Patient appears to be in no acute distress, well nourished and well developed. Patient was appropriately conversant and oriented. Good historian. MSK: No specific abnormalities found on inspection of the spine and all extremities. No pain with palpation over the lumbar area. No more tenderness over bilateral SI joints. Lumbar ROM was full. Neurological: Neurologic examination of the upper and lower extremities was nonfocal with intact sensation, muscle stretch reflexes and without focal motor deficits . Babinski was down going bilaterally. Clonus was negative. Gait is non-antalgic without loss of balance. Assessment & Plan Assessment & Plan (1) Sacroiliac joint dysfunction of both sides: Code(s): M53.3 - Sacrococcygeal disorders, not elsewhere classified Category: Medical Plan Has improved with physical therapy. Advised importance of continued exercises at home as taught by PT. No further intervention at this time. Assessment and plan discussed with patient, and patient was agreeable. All questions were answered thoroughly. Ida Souza MD, CINDY Board Certified, [place] Board of Physical Medicine and Rehabilitation (ABPMR) Board Certified, [place] Board of Electrodiagnostic Medicine (ABEM) Coding Level of Care Code Est Pt Level 3 (48478) Diagnoses Sacroiliac joint dysfunction of both sides M53.3
[2025-02-17 11:31] VITALS: BMI 29.2
== END 2025-02-17 11:41 | disposition home or self-care (01) ==
LOC: HO.HOS 10:52
PROVIDERS: PCP Internal Medicine; Visit Provider Physical Medicine & Rehabilitation
DX: M53.3 Sacrococcygeal disorders, not elsewhere classified (principal)
CPT/HCPCS: 99213

== ENCOUNTER → 2025-02-17 10:51 | Outpatient (BNVA) | payer MEDICARE, BC, SELFPAY | PROVIDERS: PCP Internal Medicine; Visit Provider Physical Medicine & Rehabilitation | DX: M53.3 Sacrococcygeal disorders, not elsewhere classified (principal) | CPT/HCPCS: 99212 ==